=== PATIENT | female | born 1985 | race Caucasian/White ===

== ENCOUNTER 2019-08-01 12:58 | Emergency (ER) | payer BC, MEDICAID ==
[2019-08-01] MEDS ORDERED: Ondansetron PF 4 MG/2 ML Vial ONE (13:46)
[2019-08-01 13:55] LABS: #Basophils 0.1 thou/uL (0.0-0.2); #Lymphocytes 2.1 thou/uL (1.20-3.40); #Monocytes 0.3 thou/uL (0.11-0.59); #Neutrophils 9.5 thou/uL (1.40-6.50); %Basophils 0.9 % (0.0-1.0); %Eosinophils 0.3 % (0.0-10.0); %Lymphocytes 17.7 % (21.0-51.0); %Monocytes 2.5 % (0.0-10.0); %Neutrophils 78.7 % (42.0-75.0); Hemoglobin 13.4 g/dL (12.0-16.0); Mean Corpuscular HGB CONC 33.3 g/dL (32.0-36.0); Mean Corpuscular Hemoglobin 28.4 pg (27.0-31.0); Mean Corpuscular Volume 85.4 fL (78.0-98.0); Mean Platelet Volume 7.3 fL (7.4-10.4); Platelet Count 269 thou/uL (130-400); RBC Distribution Width 11.1 % (11.5-14.5); Red Blood Cell (RBC) Count 4.71 mill/uL (4.20-5.40)
[2019-08-01 13:59] LABS: BHCG - Serum Negative (NEGATIVE); Pregs Control Background? CLEAR/WHITE (CLR/WHITE); Pregs Control Bar Appear? YES (CONTROL BAR)
[2019-08-01 14:06] LABS: ALT (SGPT) 22 U/L (8-55); AST (SGOT) 21 U/L (5-34); Albumin 4.4 g/dL (3.5-5.0); Alkaline Phosphatase 109 U/L (40-110); Anion Gap 20 mmol/L (10-20); BUN (Urea Nitrogen) 11 mg/dL (7.0-18.7); Bilirubin, Total 0.4 mg/dL (0.2-1.2); Calc. Creatinine Clearance 0 mL/min (70-130); Calcium 9.5 mg/dL (7.8-10.44); Carbon Dioxide 23 mmol/L (22-29); Chloride 102 mmol/L (98-107); Estimated GFR-MDRD Greater than 90; Globulin 3.8 g/dL (2.4-3.5); Glucose 125 mg/dL (70-105); Lipase 33 U/L (8-78); Potassium 3.6 mmol/L (3.5-5.1); Protein, Total 8.2 g/dL (6.0-8.3); Sodium 141 mmol/L (136-145)
[2019-08-01 14:20] LABS: Bacteria/HPF None Seen HPF (None Seen); Bilirubin Negative (Negative); Blood, Urine Trace (Negative); Clarity Slightly Cloudy (Clear); Glucose, Urine (Dipstick) Negative (Negative); Leukocyte Negative (Negative); Nitrite Negative (Negative); Protein, Urine (Dipstick) Negative (Neg-Trace); RBC/HPF 0-3 HPF (0-3); Squamous Epithelial 0-3 HPF (0-3); Urobilinogen 0.2 mg/dL (Less than 2); WBC/HPF 0-3 HPF (0-3)
== END 2019-08-01 16:02 | disposition home or self-care (01) ==
LOC: SCSER 12:58
DX: E86.0 Dehydration (principal); R11.2 Nausea with vomiting, unspecified; R19.7 Diarrhea, unspecified
CPT/HCPCS: 80053; 81003; 81015; 83605; 83690; 84703; 85025; 96361; 96374; J2405

== ENCOUNTER 2019-12-27 13:32 | Day surgery (SDC) | payer OTHER ==
[2019-12-27] MEDS ORDERED: hydrALAZINE 20 MG/ML VIAL SLOW IVP PRN (13:41)
[2019-12-27] MEDS ORDERED: Famotidine/PF 20 mg/2ml Vial SLOW IVP SCH (13:45)
[2019-12-27] MEDS ORDERED: Lactated Ringer's 1,000 ML IV SCH ×2 (13:45→20:30)
--- NOTE | 2019-12-27 13:57 | PDOC.EVN ---
Event Note - Event Note Event Note: Patient seen at bedside. Eval done. Plesae see full H&P dictated by me
[2019-12-27 13:59] VITALS: BMI 34.7
[2019-12-27] MEDS ORDERED: Multivitamins, Adult 10 ML, Folic Acid 1 MG, Thiamine HCl 100 MG in Dextrose 5 %-0.45 %... IV SCH (14:00)
--- NOTE | 2019-12-27 14:27 | HP ---
TIME: The time of initial evaluation was approximately 1340 hours. It is now about 1354 hours. LOCATION: Antepartum Unit in Labor and Delivery. REASON FOR EVALUATION: Patient is 17 weeks , status post IVF, with persistent nausea and vomiting, which has been a problem for most of the . This is a patient of Dr. Amin. This patient is the daughter of Dr. Armin Vo with Neonatology. HISTORY OF PRESENT ILLNESS: This is a 34-year-old G2, P1 with a previous in 2017, who is status post IVF for this , placing her at around 17 to 18 weeks for this . Her EDC is May 31, 2020. She sees Dr. Amin for care. The patient and the patient's mother, who is also in the room, state that she has had continual nausea and vomiting for most of this . Currently, she is on Zofran and scopolamine as well as vitamin supplementation. She denies any vaginal bleeding, leakage of fluid, or chest pain. She denies any right upper quadrant colicky pain. She denies any diarrhea or constipation. REVIEW OF SYSTEMS: Complete review of systems was checked and is otherwise negative unless specified in the HPI. PAST MEDICAL HISTORY: Significant for, 1. Psoriasis. 2. The patient has Axenfeld syndrome. 3. The patient also has a slight component of mental deficiency, which may be related to the Axenfeld per the patient's mother. ALLERGIES: TO PHENERGAN, WHICH IS AVOIDED IN HER BECAUSE THE MOTHER HAS A SEVERE LIMB MOVEMENT REACTION WITH THE MEDICATION AND SO SHE WAS TOLD TO CAUTION USE FOR PHENERGAN IN HER CHILDREN (THE PATIENT MAY HAVE THIS GENETIC TENDENCY). PHYSICAL EXAMINATION: VITAL SIGNS: Pending as the patient just arrived to Labor and Delivery, but I have seen the patient, as we are awaiting for her to be officially enrolled into Labor and Delivery/checked in. Vitals are pending. GENERAL: She is in no acute distress, and there is no evidence of vaginal bleeding grossly or leakage of fluid. Interventions ordered. I have ordered a Doppler heart check. I have ordered a right upper quadrant ultrasound. I have ordered a CMP. I have ordered an H pylori, which is a send-out lab. I have ordered IV Pepcid and a banana bag for multivitamin hydration. I have also ordered LR, but we can do that after the banana bag. ASSESSMENT: This is a 34-year-old G2, P1, previous section x1 in 2017, at 17 weeks, status post in vitro fertilization. The patient has had persistent nausea and vomiting for this gestation and based on her history, has not been evaluated for Helicobacter pylori as of yet. PLAN: 1. Interventions as above. 2. We will give her, her IV banana bag and IV fluids for hydration. 3. IV Pepcid as an antacid to reduce acid burden in the stomach. 4. CMP. 5. Right upper quadrant ultrasound. 6. Doppler FHTs. 7. H pylori lab is a send out, but we can check that in the office next week. 8. Plan discussed with the patient at bedside. Job ID: [id number]
--- NOTE | 2019-12-27 14:28 | ULT ---
Sonogram right upper quadrant HISTORY: Right upper quadrant pain. FINDINGS: Gallbladder well distended without focal stone or abnormality. Common duct is 0.4 cm. Liver unremarkable without focal mass or intrahepatic biliary dilatation. No free fluid. IMPRESSION : Normal right upper quadrant sonogram.
[2019-12-27 14:58] LABS: ALT (SGPT) 56 U/L (8-55); AST (SGOT) 47 U/L (5-34); Albumin 3.6 g/dL (3.5-5.0); Alkaline Phosphatase 81 U/L (40-110); Anion Gap 16 mmol/L (10-20); BUN (Urea Nitrogen) 6 mg/dL (7.0-18.7); Bilirubin, Total 0.5 mg/dL (0.2-1.2); Calc. Creatinine Clearance 164 mL/min (70-130); Calcium 9.1 mg/dL (7.8-10.44); Carbon Dioxide 20 mmol/L (22-29); Chloride 104 mmol/L (98-107); Estimated GFR-MDRD Greater than 90; Globulin 3.5 g/dL (2.4-3.5); Glucose 81 mg/dL (70-105); Protein, Total 7.1 g/dL (6.0-8.3); Sodium 136 mmol/L (136-145)
--- NOTE | 2019-12-27 15:20 | PDOC.EVN ---
Event Note - Event Note Event Note: RUQ sono negative AST and ALT slightly elevated but not 2x normal...may be reactive.
--- NOTE | 2019-12-27 17:12 | PDOC.EVN ---
Event Note - Event Note Event Note: Patient still states feels a bit nauseous, but no emesis here. We are limited in meds by inability to RX phenergan derivatives. Rec home with possible Pepsid OTC anf follow up H Pylori test next week.
--- NOTE | 2019-12-27 18:03 | PDOC.EVN ---
Event Note - Event Note Event Note: At bedside, reviewed med options and as Beverley has not ever tried phenergan, we will try as nausea persists with limited other options. 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 We will try 12.5mg oral.
[2019-12-27] MEDS: Promethazine 25 MG TAB PO SCH ×2 (19:13→20:50)
[2019-12-27] MEDS ORDERED: Promethazine 25 MG TAB PO SCH (20:30)
[2019-12-30 18:36] LABS: H. pylori IgA ABS Less than 9.0 units (0.0-8.9); H. pylori IgG ABS 0.17 (0.00-0.79); H. pylori IgM ABS Less than 9.0 units (0.0-8.9)
== END 2019-12-27 21:54 | disposition home or self-care (01) ==
LOC: SDC 13:32
PROVIDERS: ATTEND Obstetrics & Gynecology
DX: O21.9 Vomiting of pregnancy, unspecified (principal); O09.522 Supervision of elderly multigravida, second trimester; O99.89 Other specified diseases and conditions complicating pregnancy, childbirth and the puerperium; Q15.0 Congenital glaucoma; O99.342 Other mental disorders complicating pregnancy, second trimester; F79 Unspecified intellectual disabilities; O99.712 Diseases of the skin and subcutaneous tissue complicating pregnancy, second trimester; L40.9 Psoriasis, unspecified; O34.219 Maternal care for unspecified type scar from previous cesarean delivery; Z3A.17 17 weeks gestation of pregnancy; Z79.82 Long term (current) use of aspirin; Z79.899 Other long term (current) drug therapy; Z88.8 Allergy status to other drugs, medicaments and biological substances; Z91.040 Latex allergy status
CPT/HCPCS: 36415; 76705; 80053; 96361; 96365; 96366; 96375; 99283; J3411; J7042; Q0169; S0028

== ENCOUNTER 2020-01-11 20:23 | Day surgery (SDC) | payer OTHER ==
[2020-01-11] MEDS ORDERED: hydrALAZINE 20 MG/ML VIAL SLOW IVP PRN (21:10)
--- NOTE | 2020-01-11 21:11 | PDOC.EVN ---
Event Note - Event Note Event Note: Patient well known to me. Seen at [facility]. Here for N/V. Sent by Haleigh Zhong. H Pylori was neg propr and RUQ sono was neg / Plan to hydrate and start po daily H2 penny (pepsid) Check TVU for CX length just to confirm normal
--- NOTE | 2020-01-11 21:15 | PDOC.FPROB ---
FMR OB H&P: HPI - History of Present Illness Chief Complaint: Nausea, discharge Indentification: 34yo at 19.6wks by IVF criteria History of Present Illness: 34yo at 19.6wks by IVF criteria presents with nausea and vomiting that has been chronic throughout her but worse over the past few days. She is currently taking PNV, ASA and for her nausea: Phenergan 25mg BID, Zofran 4mg PRN q6h, and Bonjesta qHS. Last took Phenergan at 3pm, Zofran early this morning. Reports last time she vomited was 2 days ago but has had decreased PO intake and not tolerating liquids well due to nausea. Also reports vaginal mucus but denies vaginal bleeding, pruritis, recent change in discharge, dysuria , contractions, leakage of thin fluid. H pylori was recently checked which was negative. Primary Care Physician: Kamryn Zhong FMR OB H&P: Current - Care : 2 Para: 0101 Gestational age: 19.6wks Dating Criteria: IVF criteria FMR OB H&P: History - Past Medical History PMH: Axenfeld syndrome - OB History OB History: Prior with HELLP, C/S at 33wks Chronic n/v this - Surgical History Sx History: C/S Reports surgery on occipital area of skull- removal of piece of bone. Surgery for arm fracture. - Social History Social History: Denies alcohol, drug, tobacco use. - Family History Family History: Noncontributory FMR OB H&P: Medications - Current Home Medications: Medication Instructions Recorded Confirmed Type Cholecalciferol (Vitamin D3) 1,000 unit PO DAILY 04/23/17 01/11/20 History [Vitamin D] Vitamin 1 tablet PO DAILY 04/23/17 01/11/20 History Aspirin [Aspir-Low] 81 mg PO DAILY 12/27/19 01/11/20 History Doxylamine Succinate/Vit B6 1 each PO DAILY 12/27/19 01/11/20 History [Bonjesta ER 20-20 mg Tablet] Ondansetron [Zofran ODT] 4 mg PO Q4HR PRN 12/27/19 01/11/20 History Prasterone (DHEA) [DHEA] 50 mg PO DAILY 12/27/19 01/11/20 History Ubidecarenone [Co Q-10] 400 mg PO DAILY 12/27/19 01/11/20 History Allergies/Adverse Reactions: Allergies Allergy/AdvReac Type Severity Reaction Status Date / Time latex Allergy Intermediate Rash Verified 04/23/17 06:04 FMR OB H&P: ROS - Review of Systems General: reports: weight/appetite/sleep changes (denies wt loss. Decreased appetite due to nausea). denies: fever/chills Eyes: denies: vision changes, double vision ENT: denies: nasal congestion, rhinorrhea, sore throat Cardiovascular: denies: chest pain, palpitation Respiratory: denies: cough, congestion, shortness of breath Gastrointestinal: reports: nausea, vomiting, other (abdominal cramping). denies : abdominal pain Genitourinary (Female): reports: vaginal discharge. denies: dysuria, hematuria , vaginal bleeding, contractions Musculoskeletal: denies: pain Neurologic: denies: weakness, headache Integumentary: denies: rash, lesions FMR OB H&P: Physical Exam - Physical Exam General: NAD, awake, alert and oriented HEENT: normocephalic and atraumatic, MMM, conjunctiva clear, oropharynx clear Neck: supple, trachea midline Heart: RRR, no edema General: CTAB, no respiratory distress Abdomen: soft, gravid Musculoskeletal: pulses present, no misalignment/asymmetry, no atrophy Skin: no rash, good tugor Lymphatic: no unusual bruising or bleeding Psychiatric: good judgement and insight, normal mood and affect FMR OB H&P: A/P Disposition: 34yo at 19.6wks by IVF criteria presents with n/v - Will check cervical length with TVUS and CMP. For mild dehydration will give 1L LR. Can increase dose of phenergan to 50mg BID, discussed the risk of sedation with increased dose. Continue Bojesta qHS and Zofran PRN. Will give Pepcid 20mg IV. Will send in rx for her to begin taking this at home. If cervical length and BMP is normal she can be discharged with close outpt follow up. Discussion: Date/Time: 01/11/202112 This H&P was discussed with Dr. Howard who agrees with the above documentation and plan.
[2020-01-11] MEDS ORDERED: Famotidine/PF 20 mg/2ml Vial SLOW IVP SCH (21:30)
[2020-01-11] MEDS ORDERED: Lactated Ringer's 1,000 ML IV SCH (21:30)
[2020-01-11 22:04] LABS: ALT (SGPT) 23 U/L (8-55); AST (SGOT) 28 U/L (5-34); Albumin 3.5 g/dL (3.5-5.0); Alkaline Phosphatase 92 U/L (40-110); Anion Gap 16 mmol/L (10-20); BUN (Urea Nitrogen) 9 mg/dL (7.0-18.7); Bilirubin, Total 0.2 mg/dL (0.2-1.2); Calc. Creatinine Clearance 0 mL/min (70-130); Calcium 9.3 mg/dL (7.8-10.44); Carbon Dioxide 21 mmol/L (22-29); Chloride 103 mmol/L (98-107); Estimated GFR-MDRD Greater than 90; Glucose 90 mg/dL (70-105); Potassium 4.3 mmol/L (3.5-5.1); Protein, Total 7.5 g/dL (6.0-8.3); Sodium 136 mmol/L (136-145)
--- NOTE | 2020-01-11 22:32 | PDOC.EVN ---
Event Note - Event Note Event Note: Cervical length and CMP normal. Instructed to follow up with OB provider within 1 week.
--- NOTE | 2020-01-11 22:34 | PDOC.EVN ---
Event Note - Event Note Event Note: CMP and cervical length normal. OK for outpat long-term with pepcid
--- NOTE | 2020-01-11 22:51 | ULT ---
ULTRASOUND TRANSVAGINAL 01/11/20 HISTORY: Evaluate cervical length. COMPARISON: None. FINDINGS: Real time muniz scale color evaluation of the cervix was performed. Cervix is closed measuring approximately 3 cm in length. IMPRESSION: Closed cervix measuring approximately 3 cm. POS: HOME
== END 2020-01-11 22:58 | disposition home or self-care (01) ==
LOC: L&D/OP 20:23
PROVIDERS: ATTEND Obstetrics & Gynecology
DX: O21.9 Vomiting of pregnancy, unspecified (principal); O99.282 Endocrine, nutritional and metabolic diseases complicating pregnancy, second trimester; E86.0 Dehydration; O09.522 Supervision of elderly multigravida, second trimester; O99.89 Other specified diseases and conditions complicating pregnancy, childbirth and the puerperium; Q15.0 Congenital glaucoma; Z3A.19 19 weeks gestation of pregnancy; Z79.82 Long term (current) use of aspirin; Z79.899 Other long term (current) drug therapy; Z91.040 Latex allergy status; Z98.890 Other specified postprocedural states
CPT/HCPCS: 36415; 80053; S0028

== ENCOUNTER 2020-01-31 19:55 | Observation (INO) | payer OTHER ==
[2020-01-31 20:35] VITALS: BMI 37.2
[2020-01-31] MEDS ORDERED: hydrALAZINE 20 MG/ML VIAL SLOW IVP PRN (21:07)
[2020-01-31] MEDS ORDERED: Ondansetron PF 4 MG/2 ML Vial IVP PRN (21:07)
[2020-01-31] MEDS ORDERED: Dextrose 5%-Lactated Ringers 1,000 ML IV SCH (21:15)
[2020-01-31] MEDS ORDERED: Lactated Ringer's 1,000 ML IV SCH (21:15)
[2020-01-31] MEDS: Metoclopramide HCl 10 MG/2 ML VIAL IVP SCH (22:30)
[2020-01-31 22:40] LABS: Anion Gap 17 mmol/L (10-20); BUN (Urea Nitrogen) 5 mg/dL (7.0-18.7); Calc. Creatinine Clearance 196 mL/min (70-130); Calcium 8.7 mg/dL (7.8-10.44); Carbon Dioxide 20 mmol/L (22-29); Chloride 105 mmol/L (98-107); Estimated GFR-MDRD Greater than 90; Glucose 68 mg/dL (70-105); Magnesium 1.7 mg/dL (1.6-2.6); Potassium 4.2 mmol/L (3.5-5.1); Sodium 138 mmol/L (136-145)
--- NOTE | 2020-02-01 01:27 | HP ---
PRIMARY OB: Joceline Amin MD CHIEF COMPLAINT: Nausea and vomiting with failed outpatient management. HISTORY OF PRESENT ILLNESS: The patient is a 34-year-old G2, P1 female with an intrauterine at 22 weeks and 5 days, presenting to Labor and Delivery with increasing nausea and vomiting since this morning at about 4 o'clock. The patient has had recent trouble with nausea and vomiting, and has been on scheduled Zofran and Phenergan and Bonjesta. She reports that today since 4 o'clock in the morning, she has had repeated vomiting episodes, large in volume and is unable to keep down on food or liquid well. She denies fever, cough, headache, chest pain, or shortness of breath. The patient does report diarrhea. Denies constipation. Denies any new rashes, hip problems, knee problems, or muscle weakness. Denies vaginal bleeding or leakage of fluid, urinary urgency or frequency. PAST MEDICAL HISTORY: Axenfeld syndrome. PAST SURGICAL HISTORY: Prior x1, surgery on her skull, and surgery for an arm fracture. OBSTETRIC HISTORY: HELLP syndrome at 33 weeks. SOCIAL HISTORY: Denies drug, alcohol, or tobacco use. MEDICATIONS: 1. Vitamin D. 2. Low-dose aspirin 81 mg daily. 3. vitamins. 4. Bonjesta. 5. Zofran 8 mg. 6. DHEA. 7. CoQ10. 8. Phenergan 25 mg. ALLERGIES: LATEX. OB LABS: Unavailable at the time of dictation. REVIEW OF SYSTEMS: Per HPI. PHYSICAL EXAMINATION: VITAL SIGNS: Blood pressure 125/75, heart rate of 83, respiratory rate 15, temperature 98.1. GENERAL: The patient appears to be in no acute distress. She does appear somewhat depleted visually. She is alert, oriented, cooperative, and pleasant to interact with. HEAD: Normocephalic, atraumatic. LUNGS: Clear to auscultation bilaterally. HEART: Has a regular rate and rhythm. ABDOMEN: Gravid, soft, nontender. EXTREMITIES: Nontender, nonedematous. : Has been deferred. Fetus has a baseline in the 150s. LABORATORY DATA: Sodium is 138, potassium 4.2, BUN of 5, creatinine 0.51, glucose is 68, calcium of 8.7, and magnesium of 1.7. ASSESSMENT AND PLAN: The patient is a 34-year-old female with an intrauterine at 22 weeks and 5 days, as a result of IVF here for persistent nausea and vomiting. The patient has no evidence of electrolyte abnormalities. She is going to be getting IV for IV hydration and then placed on Zofran 4 mg IV q.4 hours, vitamin B6 of 25 mg three times a day, doxylamine 12.5 mg in the morning and at night, and Reglan 10 mg 30 minutes prior to her meals. We will attempt to transfer things over to p.o. medication tomorrow should the patient tolerate the diet. Once we have been able to prove effectiveness of an oral regimen, the patient will be discharged home. Job ID: [id number]
[2020-02-01 02:15] VITALS: TEMP 98.4
[2020-02-01] MEDS: Metoclopramide HCl 10 MG/2 ML VIAL IVP SCH (06:30)
--- NOTE | 2020-02-01 08:49 | PRG ---
DATE OF SERVICE: 02/01/2020 SUBJECTIVE: The patient is a 34-year-old female with an intrauterine at 22 weeks, who was admitted last night for observation secondary to persistent nausea and vomiting and failed outpatient management. The patient was given IV fluids for hydration, scheduled Reglan and Zofran, B6, and doxylamine. Since admission, the patient has not vomited. She reports that she slept well and is doing well this morning. OBJECTIVE: VITAL SIGNS: Blood pressure 100/54, heart rate of 83, respiratory rate 18, saturating 98% on room air, temperature 98.3. GENERAL: She appears to be in no acute distress. She is alert, oriented, cooperative, pleasant to interact with. HEENT: Head is normocephalic, atraumatic. heart tracing shows fetus with a baseline in the 150s. No contractions. ASSESSMENT AND PLAN: The patient is a 34-year-old female admitted for nausea and vomiting, now on IV fluids. Scheduled Reglan and Zofran, B6, and doxylamine. She has been doing well since admission. Plan will be to feed her breakfast this morning if the patient desires and if tolerated, will oil changer to p.o. Reglan, Zofran, B6, and doxylamine and give her a trial of lunch and if she tolerates all that can go home. Dr. Fabian is the oncoming physician, who will be assuming care. Job ID: [id number]
[2020-02-01] MEDS ORDERED: Doxylamine 25 MG TAB PO SCH (09:00)
[2020-02-01] MEDS ORDERED: Famotidine 20 MG TAB PO SCH (09:00)
[2020-02-01] MEDS ORDERED: pyridOXINE 50 MG (B6) TAB PO SCH (09:00)
--- NOTE | 2020-02-01 11:48 | PDOC.EVN ---
Event Note - Event Note Event Note: Feels well, no N/V since admission. Tolerating regular breakfast; eggs, guadarrama. VSS AF FHTs stable. Plan: DC home with prewcautions. Has Phenergan and Zofran at home, script for Reglan 10 mg po BID #[address] Amin notified.
== END 2020-02-01 11:55 | disposition home health service (06) ==
LOC: L&D/OP 19:55 → L&D 21:12
PROVIDERS: ADMIT Obstetrics & Gynecology; ATTEND Obstetrics & Gynecology
DX: O21.2 Late vomiting of pregnancy (principal); O34.219 Maternal care for unspecified type scar from previous cesarean delivery; O09.522 Supervision of elderly multigravida, second trimester; Z3A.22 22 weeks gestation of pregnancy; Z79.82 Long term (current) use of aspirin; Z79.899 Other long term (current) drug therapy; Z91.040 Latex allergy status
CPT/HCPCS: 36415; 80048; 83735; 96361; 96374; 96376; 99285; G0378; J2765

== ENCOUNTER 2020-02-15 13:02 | Day surgery (SDC) | payer OTHER ==
[2020-02-15] MEDS ORDERED: Ondansetron ODT 8 MG TAB SL SCH (13:45)
[2020-02-15 14:36] LABS: Bacteria/HPF None Seen HPF (None Seen); Bilirubin Negative (Negative); Blood, Urine Negative (Negative); Clarity Clear (Clear); Glucose, Urine (Dipstick) Normal (Negative); Leukocyte Negative Leu/uL (Negative); Nitrite Negative (Negative); Protein, Urine (Dipstick) 10 mg/dL (Neg-Trace); RBC/HPF 0-3 HPF (0-3); Squamous Epithelial 0-3 HPF (0-3); Urobilinogen Normal mg/dL (Less than 2); WBC/HPF 0-3 HPF (0-3)
[2020-02-15] MEDS ORDERED: Promethazine HCl 12.5 MG in Sodium Chloride 0.9% 50 ML IVPB PRN (14:42)
[2020-02-15] MEDS ORDERED: Lactated Ringer's 500 ML IV SCH (14:45)
[2020-02-15] MEDS ORDERED: hydrALAZINE 20 MG/ML VIAL SLOW IVP PRN (17:46)
--- NOTE | 2020-02-16 05:37 | PRG ---
DATE OF SERVICE: 02/15/2020 PRIMARY LOOP SEWER: Joceline Amin MD CHIEF COMPLAINT: Intermittent nausea and vomiting since 5 o'clock this morning. HISTORY OF PRESENT ILLNESS: The patient is a 34-year-old G2, P1 female with an intrauterine at 24 weeks and 6 days, presenting to Labor and Delivery with unremitting nausea and vomiting since 5 o'clock this morning. She reports that she has been unable to keep any of her antiemetics down, tolerate any food or liquids. She has had a combination of gagging, vomiting liquid, and vomiting food. This has been an ongoing problem for her throughout this and is in the process of getting a Zofran pump. The patient had been taking Reglan since her last admission, but had stopped it herself as the Reglan had been causing her to feel uterine contractions. The patient denies fever, cough, headache, chest pain, shortness of breath, diarrhea, constipation, any new rashes, hip problems, knee problems, muscle weakness, vaginal bleeding, leakage of fluid, urinary urgency, or frequency. PAST MEDICAL HISTORY: Axenfeld syndrome. PAST SURGICAL HISTORY: 1. One prior . 2. Surgery on her skull. 3. Surgery for an arm fracture. OBSTETRICAL HISTORY: HELLP syndrome at 33 weeks. SOCIAL HISTORY: Denies drug, alcohol, or tobacco use. MEDICATIONS: 1. Vitamin D. 2. 81 mg of aspirin. 3. vitamins. 4. Bonjesta. 5. Zofran. 6. Phenergan. 7. DHEA. 8. CoQ10. ALLERGIES: LATEX. OBSTETRIC LABORATORY DATA: Unavailable at the time of dictation. REVIEW OF SYSTEMS: Per HPI. PHYSICAL EXAMINATION: VITAL SIGNS: Blood pressure 111/55, heart rate of 96, respiratory rate of 18, and temperature 98.3. GENERAL: She appears to be in no acute distress. She is alert and oriented, cooperative, and pleasant to interact with. HEAD: Normocephalic and atraumatic. LUNGS: Clear to auscultation bilaterally. HEART: Regular rate and rhythm. ABDOMEN: Gravid, soft, and nontender. EXTREMITIES: Nontender and nonedematous. heart tracing shows a fetus at the baseline in the 150s with moderate long-term variability. LABORATORY DATA: Urine with specific gravity of 1.020, 40 ketones, negative nitrites, negative leukocyte esterase, negative white blood cells, and negative bacteria. ASSESSMENT AND PLAN: The patient is a 34-year-old female with uncontrollable nausea and vomiting today. Urine is not overly concentrated. We have placed 8 mg of Zofran under her tongue and have given her 12.5 mg of Phenergan IV and 500 mL of IV fluids. The patient has since been able to tolerate a diet and doing much better. We will be sending her home with Phenergan suppositories to be used when she gets into these episodes, making oral treatment nearly very difficult to take. The patient otherwise is being discharged in stable condition with instructions to follow up with her primary OB as scheduled. Job ID: [id number]
== END 2020-02-15 18:00 | disposition home or self-care (01) ==
LOC: L&D/OP 13:02
PROVIDERS: ATTEND Student in an Organized Health Care Education/Training Program
DX: O21.2 Late vomiting of pregnancy (principal); O34.219 Maternal care for unspecified type scar from previous cesarean delivery; Z3A.24 24 weeks gestation of pregnancy; Z88.8 Allergy status to other drugs, medicaments and biological substances; Z91.040 Latex allergy status
CPT/HCPCS: 81001; J2550; Q0162

== ENCOUNTER 2020-02-26 19:59 | Day surgery (SDC) | payer OTHER ==
[2020-02-26 20:27] VITALS: BMI 36.6
[2020-02-26] MEDS ORDERED: hydrALAZINE 20 MG/ML VIAL SLOW IVP PRN (20:39)
--- NOTE | 2020-02-26 20:47 | PDOC.LDHP ---
Labor and Delivery H&P Chief complaint: other (Fluids) HPI: 34 y/o at 26w3d, patient of Dr. Amin, presents for IV fluids before leaving [facility]. Patient is on a zofran pump for chronic nausea and is not nauseated at this time. Denies VB, LOF, ctx, or other concerns. +FM ROS neg for HEENT, cv, pulm, gi, gu, neuro, psych, skin, musculoskeletal or constitutional symptoms other than mentioned above. OB History Details: 1 prior LTCS for HELLP syndrome Current complications: none Past Medical History: Axenfeld syndrome Current medications: pre- vitamins, other (Vitamin D, 81mg ASA, Bonjesta, Zofran, Phenergan, DHEA, CoQ10) Previous surgical history: low tranverse CS, other (skull surgery, arm surgery) Allergies/Adverse Reactions: Allergies Allergy/AdvReac Type Severity Reaction Status Date / Time latex Allergy Intermediate Rash Verified 01/31/20 20:36 metoclopramide [From Reglan] Allergy Unknown Verified 02/15/20 14:00 Social history: none - Physical Exam Vital signs reviewed and normal: yes General: NAD, resting Lungs: nonlabored breathing Abdomen: gravid Extremeties: no edema FHT: category 1 (130s, mod variability, + accels, occasional variable decels) [place] contractions every: none - Assessment 34 y/o at 26w3d with dehydration from chronic N/V. status reassuring with reactive NST. - Plan -: D/c home with precautions. Advised to keep all appointments.
[2020-02-26] MEDS: Lactated Ringer's 1,000 ML IV SCH ×2 (21:00→22:10)
== END 2020-02-26 23:40 | disposition home or self-care (01) ==
LOC: L&D/OP 19:59
PROVIDERS: ATTEND Student in an Organized Health Care Education/Training Program
DX: O99.282 Endocrine, nutritional and metabolic diseases complicating pregnancy, second trimester (principal); E86.0 Dehydration; O21.2 Late vomiting of pregnancy; O34.211 Maternal care for low transverse scar from previous cesarean delivery; Z3A.26 26 weeks gestation of pregnancy; Z79.82 Long term (current) use of aspirin; Z79.899 Other long term (current) drug therapy; Z88.8 Allergy status to other drugs, medicaments and biological substances; Z91.040 Latex allergy status
CPT/HCPCS: 96360; 96361; 99281

== ENCOUNTER 2020-03-13 14:18 | Day surgery (SDC) | payer OTHER ==
[2020-03-13] MEDS ORDERED: hydrALAZINE 20 MG/ML VIAL SLOW IVP PRN (14:38)
[2020-03-13] MEDS ORDERED: Lactated Ringer's 1,000 ML IV SCH (14:45)
[2020-03-13 14:54] VITALS: BMI 36.3
--- NOTE | 2020-03-13 15:23 | HP ---
TIME: 1440 hours. REASON FOR EVALUATION: Nausea and vomiting at 28 weeks and 5 days. This is a patient of Dr. Amin, who received a phone call from the patient's mother earlier today about her nausea and vomiting, and Dr. Amin instructed her to come for IV fluids. HISTORY OF PRESENT ILLNESS: This is a 34-year-old G2, P0-1-0-1, who has presented with nausea and vomiting in the past for what seems to be a chronic condition. She has used Phenergan and Zofran in the past for this. She has been on several cocktail medications for nausea this . OBSTETRIC HISTORY: She is a 2, para 0-1-0-1. SURGICAL HISTORY: She has had a prior , and she also reports arm fracture and skull surgical repair in the past as well. SOCIAL HISTORY: Negative x3. FAMILY HISTORY: Noncontributory. ALLERGIES: TO LASIX AND METOCLOPRAMIDE. PHYSICAL EXAMINATION: GENERAL: She is in no acute distress. VITAL SIGNS: Stable, afebrile. PELVIC: There is no evidence of vaginal bleed. No gross leakage of fluid. ASSESSMENT: This is a 34-year-old, G2, P0-1-0-1, who is now at 28 weeks and 5 days with persistent nausea and vomiting. PLAN: 1. We will check a complete metabolic profile. 2. I have ordered 2 L of LR. 3. Dr. Amin is aware of the patient's arrival and has requested that I watch her here in Labor and Delivery and give her IV fluids. Job ID: [id number]
[2020-03-13 15:37] LABS: ALT (SGPT) 186 U/L (8-55); AST (SGOT) 182 U/L (5-34); Alkaline Phosphatase 115 U/L (40-110); Anion Gap 11 mmol/L (10-20); BUN (Urea Nitrogen) 6 mg/dL (7.0-18.7); Bilirubin, Total 0.2 mg/dL (0.2-1.2); Calc. Creatinine Clearance 175 mL/min (70-130); Calcium 8.4 mg/dL (7.8-10.44); Carbon Dioxide 24 mmol/L (22-29); Chloride 105 mmol/L (98-107); Estimated GFR-MDRD Greater than 90; Globulin 3.3 g/dL (2.4-3.5); Glucose 94 mg/dL (70-105); Potassium 3.7 mmol/L (3.5-5.1); Protein, Total 6.3 g/dL (6.0-8.3); Sodium 136 mmol/L (136-145)
--- NOTE | 2020-03-13 15:50 | PDOC.BPN ---
- Brief Progress Note At bedside now. States threw up pepcid at home and zofran at home. Will order IV zofran and pepcid now
--- NOTE | 2020-03-13 15:53 | PDOC.BPN ---
- Brief Progress Note AST and ALT 180s Creatinine is ok BPs all been ok Elevated LFTS may be reactive from the persistent N/V. We will check hepatitis panel now; check CBC as well.
[2020-03-13 15:59] LABS: Mean Corpuscular HGB CONC 33.8 g/dL (32.0-36.0); Mean Corpuscular Hemoglobin 29.2 pg (27.0-31.0); Mean Corpuscular Volume 86.5 fL (78.0-98.0); Mean Platelet Volume 8.5 fL (7.4-10.4); Platelet Count 203 thou/uL (130-400); RBC Distribution Width 11.8 % (11.5-14.5); Red Blood Cell (RBC) Count 3.41 mill/uL (4.20-5.40); White Blood Cell (WBC) Count 13.1 thou/uL (4.8-10.8)
[2020-03-13] MEDS ORDERED: Famotidine/PF 20 mg/2ml Vial SLOW IVP SCH (16:00)
[2020-03-13] MEDS ORDERED: Ondansetron HCl/PF 4 MG in Sodium Chloride 0.9% 50 ML IVPB SCH (16:00)
[2020-03-13 16:41] LABS: HBCM Index 0.05 S/CO (0-0.79); HBSAg Index 0.18 S/CO (0-0.99); Hep A IgM AB Non-Reactive (NonReactive); Hep B Surf Ag Non-Reactive S/CO (NonReactive); Hep C IgG Ab Non-Reactive (NonReactive); Hep C Index 0.06 S/CO (0-0.79); Hepatitis B Core IgM Abs Non-Reactive (NonReactive)
--- NOTE | 2020-03-13 16:59 | PDOC.BPN ---
- Brief Progress Note CBC is wnl Hep panel is negative
== END 2020-03-13 17:36 | disposition home health service (06) ==
LOC: L&D/OP 14:18
PROVIDERS: ATTEND Student in an Organized Health Care Education/Training Program
DX: O21.2 Late vomiting of pregnancy (principal); O34.219 Maternal care for unspecified type scar from previous cesarean delivery; O09.523 Supervision of elderly multigravida, third trimester; Z3A.28 28 weeks gestation of pregnancy; Z88.8 Allergy status to other drugs, medicaments and biological substances; Z91.040 Latex allergy status
CPT/HCPCS: 36415; 80053; 80074; 85027; J2405; S0028

== ENCOUNTER 2020-03-16 11:06 | Inpatient (IN) | payer OTHER ==
[2020-03-16 11:43] VITALS: BMI 36.3
[2020-03-16] MEDS ORDERED: hydrALAZINE 20 MG/ML VIAL SLOW IVP PRN ×2 (12:18→15:33)
[2020-03-16] MEDS ORDERED: Lactated Ringer's 1,000 ML IV SCH (12:30)
[2020-03-16 12:38] LABS: Bacteria/HPF None Seen HPF (None Seen); Bilirubin Negative (Negative); Blood, Urine Negative (Negative); Clarity Clear (Clear); Glucose, Urine (Dipstick) Normal (Negative); Leukocyte 250 Leu/uL (Negative); Nitrite Negative (Negative); Protein, Urine (Dipstick) 20 mg/dL (Neg-Trace); RBC/HPF 0-3 HPF (0-3); Squamous Epithelial 0-3 HPF (0-3); Urobilinogen Normal mg/dL (Less than 2)
[2020-03-16] MEDS ORDERED: Ondansetron PF 4 MG/2 ML Vial IVP SCH (13:00)
[2020-03-16 14:08] LABS: FFN Internal QC Analyzer PASS (PASS); FFN Internal QC Cassette PASS (PASS); Fetal Fibronectin POSITIVE (Negative)
[2020-03-16] MEDS ORDERED: Heparin 1,000 UNITS/ML VIAL ONE (14:41)
--- NOTE | 2020-03-16 14:58 | ULT ---
LIMITED OB ULTRASOUND: HISTORY: Evaluate cervical length. FINDINGS: Cervical length is between 1.2 and 3.4 cm. heart tones: 136 bpm. Right-sided placenta. No previa. BPD 7.61 cm, 30 weeks 4 days. Head circumference 27.29 cm, 29 weeks 6 days. Abdominal circumference 27.09 cm, 31 weeks 1 day. Femur length 5.72 cm, 30 weeks 0 days. Amniotic fluid 18.5 cm. Estimated weight is 1606 g +/- 38 g. Estimated weight percentage is 87%. Average age by sonography is 29 weeks 6 days. IMPRESSION: Single gestation. Average age by sonography is 29 weeks 6 days. Estimated weight is 1606 g +/- 238 g. Cervical length is between 1.2 and 3.4 cm. Findings of the cervical length were conveyed to Dr. Diana by the chain carrier at 03/16/2020 2:55 PM Code CR Transcribed Date/Time: 03/16/2020 3:23 PM
[2020-03-16] MEDS ORDERED: Promethazine HCl 25 MG/ML VIAL IM PRN (15:33)
[2020-03-16 16:32] LABS: Hemoglobin 10.4 g/dL (12.0-16.0); Mean Corpuscular HGB CONC 33.3 g/dL (32.0-36.0); Mean Corpuscular Hemoglobin 28.6 pg (27.0-31.0); Mean Corpuscular Volume 85.8 fL (78.0-98.0); Mean Platelet Volume 8.9 fL (7.4-10.4); Platelet Count 190 thou/uL (130-400); Red Blood Cell (RBC) Count 3.64 mill/uL (4.20-5.40); White Blood Cell (WBC) Count 14.4 thou/uL (4.8-10.8)
[2020-03-16 16:53] LABS: ALT (SGPT) 178 U/L (8-55); AST (SGOT) 188 U/L (5-34); Alkaline Phosphatase 116 U/L (40-110); Anion Gap 15 mmol/L (10-20); BUN (Urea Nitrogen) 4 mg/dL (7.0-18.7); Bilirubin, Total 0.2 mg/dL (0.2-1.2); Calc. Creatinine Clearance 196 mL/min (70-130); Calcium 8.7 mg/dL (7.8-10.44); Carbon Dioxide 22 mmol/L (22-29); Chloride 106 mmol/L (98-107); Estimated GFR-MDRD Greater than 90; Globulin 3.8 g/dL (2.4-3.5); Glucose 68 mg/dL (70-105); Potassium 3.8 mmol/L (3.5-5.1); Protein, Total 6.8 g/dL (6.0-8.3); Sodium 139 mmol/L (136-145)
[2020-03-16 17:04] LABS: HBSAg Index 0.13 S/CO (0-0.99); Hep B Surf Ag Non-Reactive S/CO (NonReactive)
[2020-03-16 17:06] LABS: Syphilis Antibody Nonreactive (Nonreactive); Syphilis Antibody Index 0.04 S/CO (<1.00 Non-Reactive)
[2020-03-16] MEDS ORDERED: Betamet Acet/Betamet Na Ph 30 MG/5 ML VIAL ONE (17:18)
[2020-03-16 17:43] LABS: INR-International Normal Ratio 1.1; PTT 30.3 sec (22.9-36.1); Prothrombin Time 13.8 sec (12.0-14.7)
[2020-03-16] MEDS: metroNIDAZOLE 0.75% 70 GM TUBE VAG SCH (22:02)
[2020-03-16] MEDS: Ondansetron PF 4 MG/2 ML Vial IVP PRN (22:02)
--- NOTE | 2020-03-16 22:20 | HP ---
PRIMARY OB: Dr. Joceline Amin. CHIEF COMPLAINT: Abdominal pains. HISTORY OF PRESENT ILLNESS: Patient is a 34-year-old G2, P1 female, with an intrauterine at 29 weeks and a day, presenting to Labor and Delivery with complaints of cramping that she started last night. Patient has come to have evaluated for possible labor. Patient reports that she continues to have problems with nausea and vomiting and has been refractory to and has failed to be controlled well with outpatient management. She reports that she has not taken any antiemetics today. She does deny fever, cough, headache, chest pain, shortness of breath, diarrhea, constipation, any new rashes, hip problems, knee problems, or muscle weakness. She denies vaginal bleeding. She does report that she has had a mucousy discharge since yesterday. She denies urinary urgency or frequency. PAST MEDICAL HISTORY: Axenfeld syndrome. PAST SURGICAL HISTORY: She has had 1 prior . She had surgery on her skull and surgery for an arm fracture. OBSTETRIC HISTORY: HELLP syndrome at 33 weeks with her previous . SOCIAL HISTORY: Denies drug, alcohol, or tobacco use. MEDICATIONS: 1. Vitamin D. 2. Low-dose aspirin. 3. vitamins. 4. Bonjesta. 5. Zofran. 6. Phenergan. 7. DHEA. 8. CoQ10. ALLERGIES: LATEX. OB LABS: Unavailable at the time of dictation. REVIEW OF SYSTEMS: Per HPI. PHYSICAL EXAMINATION: VITAL SIGNS: Blood pressure is 129/75, heart rate of 89, respiratory rate of 18 , saturating 97% on room air, and temperature 98.5. GENERAL: She appears to be in no acute distress. She is alert, oriented, cooperative, and pleasant to interact with. HEAD: Normocephalic and atraumatic. LUNGS: Clear to auscultation bilaterally. HEART: Regular rate and rhythm. ABDOMEN: Gravid, soft, and nontender. EXTREMITIES: Nontender and nonedematous. GENITOURINARY: Vulva without masses, lesions, or erythema. Vagina is moist. Speculum exam was extremely difficult due to patient intolerance. The cervix was visualized, appeared to be full. There was a significant amount of white smooth discharge, difficult to get a clear complete visualization of the cervix. However, there did not appear to have any hourglassing membranes or visible membranes. Due to the difficulty of the speculum exam, the cervical exam was deferred to later. DIAGNOSTIC DATA: heart tracing shows the fetus with a baseline in the 130s with moderate long-term variability, appropriate for a 29-week gestation with 15 x 15 accelerations. Tocometer is not showing any contractions visible or irritability. Ultrasound demonstrated a fetus in vertex presentation. Cervical length is about 1 cm with U-shaped funneling. weight 1606 g. LABORATORIES: Labs show positive fibronectin. Urine significant for 20 of ketones, 250 leukocyte esterase, 4 to 6 white blood cells, VPIII is positive for bacterial vaginosis, Gardnerella, negative for yeast or Trichomonas. ASSESSMENT AND PLAN: Patient is a 34-year-old female, with an intrauterine at 29 weeks and a day, complicated by persistent nausea and vomiting difficult to manage outpatient. She has had multiple admissions to the hospital for fluid hydration and evaluation. Today, the patient presents with cramping, though I do not see any evidence of active labor at this time. Patient does have a foreshortened cervix with funneling indicating need for admission, steroid administration, and observation for labor. Patient will be treated with Metrogel for bacterial vaginosis. Should she experience any signs of active labor, we will also add magnesium for tocolysis. Job ID: [id number] [facility]
[2020-03-16] MEDS: Aspirin 81 mg Enteric Coated Tablet PO SCH (23:03)
--- NOTE | 2020-03-17 08:34 | PDOC.LDPN ---
Labor & Delivery Progress Note - Subjective Subjective: other (abdominal cramping, diffuse and nausea, no emesis. No VB LOF. Good FM) - Objective Vital signs reviewed and normal: yes Abnormal vital signs: mild range BP 140 systolic General: NAD Uterine fundus: non tender FHT: category 1 [place] contractions every: none - Assessment (1) Short cervix affecting Code(s): O26.879 - CERVICAL SHORTENING, UNSPECIFIED TRIMESTER Current Visit: Yes Status: Acute (2) Elevated LFTs Code(s): R79.89 - OTHER SPECIFIED ABNORMAL FINDINGS OF BLOOD CHEMISTRY Current Visit: Yes Status: Acute (3) Nausea and vomiting during Code(s): O21.9 - VOMITING OF , UNSPECIFIED Current Visit: Yes Status: Acute -: HD#2 Short cervix- no ctx on monitor, cont bedrest and BMZ administration, no e/o PTL , will mag if delivery appears imminent Elevated LFT- stable from 3d prior, trend daily, no sx PIH, glucose low, plt 190. W/u with additional labs to eval for AFLP and gallbladder or underlying liver condition. Other consideration is from toxicity of medications. Will DC phenergan for now. N/V- ok currently, pt kaylie reg diet, will get dietary for calorie count to eval for supplements and adequacy of diet. Zofran IV prn and cont IVF. NST Cat 1 for GA, cont q shift monitoring S=D, ceph Prior CS x 1 for repeat Hx HELLP at 33w- on baby ASA Cont Inpt care.
[2020-03-17] MEDS: Ondansetron PF 4 MG/2 ML Vial IVP PRN ×3 (08:41→21:52)
[2020-03-17 09:30] LABS: #Basophils 0.1 thou/uL (0.0-0.2); #Eosinphils 0.1 thou/uL (0.0-0.7); #Monocytes 0.6 thou/uL (0.11-0.59); #Neutrophils 13.9 thou/uL (1.40-6.50); %Basophils 0.3 % (0.0-1.0); %Eosinophils 0.5 % (0.0-10.0); %Lymphocytes 11.9 % (21.0-51.0); %Monocytes 3.6 % (0.0-10.0); %Neutrophils 83.6 % (42.0-75.0); Hemoglobin 10.3 g/dL (12.0-16.0); Mean Corpuscular HGB CONC 33.2 g/dL (32.0-36.0); Mean Corpuscular Hemoglobin 28.1 pg (27.0-31.0); Mean Corpuscular Volume 84.8 fL (78.0-98.0); Mean Platelet Volume 9.7 fL (7.4-10.4); Platelet Count 169 thou/uL (130-400); Red Blood Cell (RBC) Count 3.66 mill/uL (4.20-5.40); White Blood Cell (WBC) Count 16.6 thou/uL (4.8-10.8)
[2020-03-17 09:40] LABS: ALT (SGPT) 189 U/L (8-55); AST (SGOT) 194 U/L (5-34); Albumin 3.1 g/dL (3.5-5.0); Alkaline Phosphatase 115 U/L (40-110); Anion Gap 17 mmol/L (10-20); BUN (Urea Nitrogen) 5 mg/dL (7.0-18.7); Bilirubin, Total 0.2 mg/dL (0.2-1.2); Calc. Creatinine Clearance 163 mL/min (70-130); Carbon Dioxide 18 mmol/L (22-29); Chloride 107 mmol/L (98-107); Estimated GFR-MDRD Greater than 90; Globulin 3.6 g/dL (2.4-3.5); Glucose 153 mg/dL (70-105); Potassium 3.7 mmol/L (3.5-5.1); Protein, Total 6.7 g/dL (6.0-8.3); Sodium 138 mmol/L (136-145); Uric Acid 5.1 mg/dL (2.6-6.0)
--- NOTE | 2020-03-17 13:05 | ULT ---
EXAM: US Gallbladder RUQ CLINICAL HISTORY: 20 weeks . Elevated liver functions tests. Nausea and vomiting.. COMPARISON: 12/27/2019 FINDINGS: Pancreas: The head of the pancreas has a normal echotexture. The remainder the pancreas is obscured by bowel gas Liver:Increased hepatic parenchymal echotexture may be due to hepatic steatosis or hepatocellular dis ease. Subsequent limited evaluation for hepatic masses and intrahepatic biliary dilatation. Right hepatic lobe: 16.2 cm Gallbladder: No sonographic evidence of cholelithiasis, gallbladder wall thickening or pericholecysti c fluid. Ulloa's sign:Negative Portal Vein: Patent. Appropriate directional flow Bile ducts: Suboptimal evaluation the common bile duct. Right kidney: No hydronephrosis. Right kidney measures 5.1 x 4.3 x 11.0 cm in length. IMPRESSION: 1. Heterogeneous echotexture liver may be due to hepatic steatosis or hepatocellular disease. If ther e is concern for hepatic masses, additional imaging can be performed. 2. No sonographic evidence of cholelithiasis or cholecystitis. 3. No evidence of hydronephrosis 4. Suboptimal evaluation of the common bile duct
[2020-03-17] MEDS: Lactated Ringer's 1,000 ML IV SCH ×2 (16:20→18:27)
[2020-03-17] MEDS: Betamet Acet/Betamet Na Ph 30 MG/5 ML VIAL IM SCH ×2 (18:05→18:06)
[2020-03-17] MEDS: metroNIDAZOLE 0.75% 70 GM TUBE VAG SCH (21:49)
[2020-03-18 03:41] LABS: Amnisure Test No Membranes Rupture (No Rupture)
[2020-03-18 03:42] LABS: Amnisure Internal Control QC ACCEPTABLE (ACCEPTABLE)
[2020-03-18 07:11] LABS: #Eosinphils 0.1 thou/uL (0.0-0.7); #Lymphocytes 1.8 thou/uL (1.20-3.40); #Monocytes 0.7 thou/uL (0.11-0.59); #Neutrophils 14.3 thou/uL (1.40-6.50); %Basophils 0.2 % (0.0-1.0); %Eosinophils 0.3 % (0.0-10.0); %Lymphocytes 10.6 % (21.0-51.0); %Monocytes 4.3 % (0.0-10.0); %Neutrophils 84.5 % (42.0-75.0); Mean Corpuscular HGB CONC 33.2 g/dL (32.0-36.0); Mean Corpuscular Hemoglobin 28.4 pg (27.0-31.0); Mean Corpuscular Volume 85.7 fL (78.0-98.0); Mean Platelet Volume 8.4 fL (7.4-10.4); Platelet Count 176 thou/uL (130-400); RBC Distribution Width 12.1 % (11.5-14.5); Red Blood Cell (RBC) Count 3.53 mill/uL (4.20-5.40); White Blood Cell (WBC) Count 16.9 thou/uL (4.8-10.8)
[2020-03-18 07:38] LABS: ALT (SGPT) 321 U/L (8-55); AST (SGOT) 422 U/L (5-34); Albumin 3.1 g/dL (3.5-5.0); Alkaline Phosphatase 115 U/L (40-110); Anion Gap 13 mmol/L (10-20); BUN (Urea Nitrogen) 4 mg/dL (7.0-18.7); Bilirubin, Total 0.2 mg/dL (0.2-1.2); Calc. Creatinine Clearance 196 mL/min (70-130); Calcium 8.7 mg/dL (7.8-10.44); Carbon Dioxide 21 mmol/L (22-29); Chloride 107 mmol/L (98-107); Estimated GFR-MDRD Greater than 90; Globulin 3.5 g/dL (2.4-3.5); Glucose 104 mg/dL (70-105); Potassium 3.6 mmol/L (3.5-5.1); Protein, Total 6.6 g/dL (6.0-8.3); Sodium 137 mmol/L (136-145)
[2020-03-18] MEDS: Ondansetron PF 4 MG/2 ML Vial IVP PRN (08:41)
[2020-03-18] MEDS: Prenatal Vitamin 1 TAB PO SCH (08:41)
[2020-03-18] MEDS ORDERED: Famotidine 40 MG/5 ML Oral Suspension PO SCH (09:00)
[2020-03-18] MEDS ORDERED: Famotidine 20 MG TAB PO SCH (09:00)
[2020-03-18] MEDS: Lactated Ringer's 1,000 ML IV SCH ×2 (10:02→16:35)
[2020-03-18] MEDS: Famotidine 40 MG/5 ML Oral Suspension PO SCH (10:11)
--- NOTE | 2020-03-18 12:29 | PDOC.LDPN ---
Labor & Delivery Progress Note - Subjective Subjective: other (diffuse abd cramping 06/04, no VB LOF. Good FM. Nauseated. Emesis x 1 yesterday. No constipation. +spots in vision, no GARRISON.) - Objective Vital signs reviewed and normal: yes General: NAD Uterine fundus: non tender FHT: category 1 [place] contractions every: none - Assessment (1) Short cervix affecting Code(s): O26.879 - CERVICAL SHORTENING, UNSPECIFIED TRIMESTER Current Visit: Yes Status: Acute (2) Elevated LFTs Code(s): R79.89 - OTHER SPECIFIED ABNORMAL FINDINGS OF BLOOD CHEMISTRY Current Visit: Yes Status: Acute (3) Nausea and vomiting during Code(s): O21.9 - VOMITING OF , UNSPECIFIED Current Visit: Yes Status: Acute -: HD#3 VSSAF Abd pain- No e/o PTL on monitor. s/p BMZ for prematurity. Cramping is unrelated to Elevated LFTs- went up significantly today, neg RUQ sono and labs for HELLP or APLS. BP wnl. Consult GI for further recs. N/V- premed with zofran for meals, start calorie count for adequacy of intake, start pepcid BID NST Cat 1 for GA Prior CS x 1 for repeat Start PNV and Iron Transfer to floor.
[2020-03-18 13:35] LABS: Creatinine, Urine 61.2 mg/dL (47-110)
[2020-03-18 14:03] VITALS: BP 117/58; TEMP 98.6
[2020-03-18] MEDS: Butorphanol Tartrate 1 MG/ML VIAL SLOW IVP PRN (14:08)
[2020-03-18 15:56] LABS: ALT (SGPT) 378 U/L (8-55); AST (SGOT) 475 U/L (5-34); Albumin 3.3 g/dL (3.5-5.0); Alkaline Phosphatase 117 U/L (40-110); Bilirubin, Direct 0.1 mg/dL (0.1-0.3); Bilirubin, Total 0.2 mg/dL (0.2-1.2); Protein, Total 6.8 g/dL (6.0-8.3)
[2020-03-18] MEDS ORDERED: Calcium Gluc 4.6 MEQ/10 ML (100 MG/ML) SLOW IVP PRN (16:03)
--- NOTE | 2020-03-18 16:18 | PRG ---
DATE OF SERVICE: 03/18/2020 SUBJECTIVE: Her primary OB, Dr. Amin, who is in the office currently asked that I come by to evaluate Ms. Koehler, who had complaints of pelvic and back pains. The patient is a 34-year-old female with an intrauterine at 29 weeks and 3 days, who was admitted to the hospital for steroids and observation due to acute shortening of her cervix. In the meantime, the patient was noted to have rising LFTs; however, no other signs or symptoms of preeclampsia or HELLP syndrome. Today, in evaluating the patient, the patient reports that she is having pain all over and is unable to give any specific locations. OBJECTIVE: VITAL SIGNS: Blood pressure 117/58, heart rate of 114, temperature 98.6, respiratory rate of 20, saturating 97% on room air. GENERAL: She appears to be in a state of anxiousness, but does not appear to be as difficult to assess the level of distress she may be in. MUSCULOSKELETAL: On physical exam, she reports tenderness to palpation in any location including her back, her paravertebral muscles, her SI joint, her shoulder, her arm, her belly with light or deep palpation. ABDOMEN: During my examination, did not feel any tightening of her uterus. CERVICAL: Exam performed by one of the nursing staff given the difficult nature of her exam reports that her cervix is unchanged from my report on initial presentation of being fingertip. LABORATORY DATA: In reviewing lab work from this morning; her LFTs have acutely elevated from yesterday more than doubling from 194 to 422. This is a significant change as her LFTs sent for the previous 5 days or so, had been stable at around the upper 180s. Also reviewing lab work, her uric acid is noted to be at 5.1. Her urine protein to creatinine ratio has elevated slightly to 0.25 from 0.15. ASSESSMENT AND PLAN: At this time, it is difficult to establish the cause of the patient's reported pain. She does not appear to be having any signs of labor. This could be an outer expression of her anxiety. This could be musculoskeletal pain just associated with changes in her day-to-day routine being in the bed for much longer periods of time. However, in reviewing her labs, I have repeat her LFTs today at this time to see if we are having anymore acute changes. She does have some soft markers pointing toward possible development of preeclampsia or HELLP syndrome, though nothing concrete, except for some isolated rising in her LFTs. She does have a history of HELLP syndrome at 33 weeks with her previous . Plan at this point in time, after reviewing the findings with her doctor, Dr. Amin, is to transfer her to Labor and Delivery. Start magnesium for neuroprotection while we are continuing this workup. The patient has received steroids for lung maturity and NICU has been contacted and is made aware of potential delivery in the near coming days. Job ID: [id number]
[2020-03-18] MEDS: Magnesium Sulfate 20 gm/500 ml 20 GM/500 ML BAG IVPB SCH (17:43)
[2020-03-18 17:53] LABS: PTT 25.5 sec (22.9-36.1); Prothrombin Time 13.2 sec (12.0-14.7)
[2020-03-18 17:58] LABS: Fibrinogen 656 mg/dL (253-463)
[2020-03-18 18:31] LABS: FSP-Qualitative Normal (Normal); FSP-Semiquantitative LESS THAN 5 mcg/mL (Less than 5)
[2020-03-18] MEDS: Meperidine HCl/PF 25 MG/ML VIAL SLOW IVP PRN (19:44)
[2020-03-18] MEDS: Promethazine HCl 12.5 MG in Sodium Chloride 0.9% 50 ML IVPB PRN (19:47)
[2020-03-18] MEDS: Aspirin 81 mg Enteric Coated Tablet PO SCH (22:19)
[2020-03-18] MEDS: metroNIDAZOLE 0.75% 70 GM TUBE VAG SCH (22:19)
[2020-03-19] MEDS: Meperidine HCl/PF 25 MG/ML VIAL SLOW IVP PRN (03:43)
[2020-03-19] MEDS: Magnesium Sulfate 20 gm/500 ml 20 GM/500 ML BAG IVPB SCH ×2 (03:46→12:45)
[2020-03-19] MEDS: Lactated Ringer's 1,000 ML IV SCH ×3 (03:47→19:49)
[2020-03-19] MEDS: Famotidine 40 MG/5 ML Oral Suspension PO SCH ×2 (03:47→10:15)
[2020-03-19] MEDS: Ferrous Sulfate 325 MG TAB PO SCH ×3 (03:47→20:28)
[2020-03-19] MEDS: Ondansetron PF 4 MG/2 ML Vial IVP PRN ×2 (04:06→10:08)
[2020-03-19 04:50] LABS: #Basophils 0.1 thou/uL (0.0-0.2); #Eosinphils 0.1 thou/uL (0.0-0.7); #Lymphocytes 2.2 thou/uL (1.20-3.40); #Monocytes 1.1 thou/uL (0.11-0.59); #Neutrophils 10.9 thou/uL (1.40-6.50); %Basophils 0.4 % (0.0-1.0); %Eosinophils 0.6 % (0.0-10.0); %Lymphocytes 15.7 % (21.0-51.0); %Monocytes 7.4 % (0.0-10.0); Hemoglobin 9.5 g/dL (12.0-16.0); Mean Corpuscular HGB CONC 32.2 g/dL (32.0-36.0); Mean Corpuscular Hemoglobin 27.7 pg (27.0-31.0); Mean Platelet Volume 8.9 fL (7.4-10.4); Platelet Count 193 thou/uL (130-400); RBC Distribution Width 12.2 % (11.5-14.5); Red Blood Cell (RBC) Count 3.43 mill/uL (4.20-5.40); White Blood Cell (WBC) Count 14.3 thou/uL (4.8-10.8)
[2020-03-19 04:54] LABS: Fibrinogen 723 mg/dL (253-463)
[2020-03-19 04:55] LABS: PTT 25.7 sec (22.9-36.1)
[2020-03-19 05:16] LABS: FSP-Qualitative Normal (Normal); FSP-Semiquantitative <5 mcg/mL (Less than 5)
[2020-03-19 05:44] LABS: ALT (SGPT) 363 U/L (8-55); AST (SGOT) 423 U/L (5-34); Acetaminophen Less than 6.0 mcg/mL (10.0-30.0); Alkaline Phosphatase 106 U/L (40-110); Anion Gap 13 mmol/L (10-20); BUN (Urea Nitrogen) 4 mg/dL (7.0-18.7); Bilirubin, Total 0.2 mg/dL (0.2-1.2); Calc. Creatinine Clearance 196 mL/min (70-130); Calcium 7.3 mg/dL (7.8-10.44); Carbon Dioxide 23 mmol/L (22-29); Chloride 105 mmol/L (98-107); Estimated GFR-MDRD Greater than 90; Globulin 3.4 g/dL (2.4-3.5); Glucose 113 mg/dL (70-105); Lipase 17 U/L (8-78); Potassium 3.4 mmol/L (3.5-5.1); Protein, Total 6.4 g/dL (6.0-8.3); Sodium 138 mmol/L (136-145)
--- NOTE | 2020-03-19 07:21 | CON ---
DATE OF CONSULTATION: 03/18/2020 REASON FOR CONSULT: Elevated liver enzymes. HISTORY OF PRESENT ILLNESS: Ms. Koehler is a pleasant 34-year-old female, who is about 39 weeks , who came in as she was having lower abdominal pain and was concerned she was going into labor. She described this as cramping, it was not quite like labor cramps. She did pass some mucus as well. She apparently has been evaluated for labor and not felt to be in labor, was moved to the medical floor and it was decided to keep her admitted because her LFTs were up. This has been noted to start late last week. Additionally, she states she has had continuous problems with nausea and vomiting throughout her . This started about week 10 to 12, intermittently she has had to come in for IV fluids. She denies any fever, cough, headaches. She has no chest pain or shortness of breath. She denies diarrhea or constipation, rashes, myalgias, or arthralgias. She has had no vaginal bleeding. She denies any sick contacts with viral-like symptoms, respiratory or GI. She denies starting any new medications. She had delivery in 03/2017. At that time, she underwent labor at 33 weeks with possibly component of mild HELLP syndrome at that time as well. She was noted to have abnormal liver enzymes at the end of that as well. PAST MEDICAL HISTORY: Axenfeld syndrome. PAST SURGICAL HISTORY: Occipital skull, piece of bone, surgery for arm fracture as well. She is 2, para 0-1-0-1, dates for are in vitro fertilization. ALLERGIES: LATEX. FAMILY HISTORY: Negative for liver disorders. SOCIAL HISTORY: Negative for alcohol, drugs, or tobacco. REVIEW OF SYSTEMS: Negative for rashes, myalgias, or arthralgias. No history of psychiatric disorder. No history of heavy NSAID or Tylenol use, or supplement use. MEDICATIONS: 1. Vitamin D. 2. Low-dose aspirin. 3. vitamins. 4. Bonjesta. 5. Zofran. 6. Phenergan. 7. DHEA. 8. CoQ10. Present medications: 1. Ecotrin. 2. Stadol p.r.n. 3. Calcium gluconate p.r.n. 4. Pepcid 20 mg p.o. b.i.d. 5. Iron sulfate b.i.d. with meals. 6. Lactated Ringer's 125 an hour. 7. Magnesium sulfate drip. 8. Metronidazole. 9. Zofran. 10. Multivitamin. 11. Phenergan. 12. She received betamethasone q.24 hours yesterday and today. PHYSICAL EXAMINATION: She is resting comfortably in bed. Her mother is at the bedside. VITAL SIGNS: Pulse 94 to 92, this afternoon at 1300 hours, it went up to 114. Blood pressure 129/75 on admission, now 117/58. She is afebrile, O2 saturation 97%. GENERAL: She is resting comfortably in bed. HEENT: Pupils are equal, round, reactive to light and accommodation. Extraocular muscles are intact. Conjunctiva and sclera are clear. NECK: Supple without any adenopathy. LUNGS: Clear. ABDOMEN: Soft. There is no palpable hepatosplenomegaly. Abdomen is gravid. There is no overt tenderness in the right upper quadrant. There is no rebound. There is no guarding. EXTREMITIES: No clubbing, cyanosis, or edema. LABORATORY STUDIES: Labs today; white count 16.9, 16.9 yesterday, 14.1 on 03/16, 13.1 on 03/13 and 12.0 on 08/01/2019. Hemoglobin is 10, it was 10.4 on the . Platelet count 176, it was 190 on the , 203 on the , 269 on 08/01/2019. Fibrinogen was 755. INR 1.1, PTT 30, PT 13 on the . Liver function tests today, AST and ALT are 475 and 378, alkaline phosphatase 117, bilirubin 0.2, albumin 3.3, direct bilirubin 0.1, total bilirubin 0.2. Liver function tests at 0700 this morning, the AST and ALT are a little bit lower at 422 and 321, alkaline phosphatase was 115. On the , they were 194 and 189 with alkaline phosphatase of 115. On 03/16, they were 188 and 138 with alkaline phosphatase of 116. On 02/12, they were 25 and 22 with alkaline phosphatase 116. On 01/11/2020, they were 20 and 23. Lipase not done this admission. Electrolytes normal. Urine showed protein random 15, it was 17 on the . Creatinine 61, it was 107 on the . Amino swab test on the negative. Serology, hepatitis B surface antigen negative on 03/16. Syphilis IgG IgM negative on the . Hepatitis A IgM negative on the . Hep B core IgM negative on the . C antibody negative on the . IMAGING STUDIES: Abdominal ultrasound 03/17, increased hepatic echotexture consistent with fatty liver. Right hepatic liver lobe was 16.2 cm. No mass or hepatic duct dilatation. Gallbladder, no stones, no gallbladder wall thickening. Portal vein is patent with appropriate flow direction. ASSESSMENT: This is a 34-year-old female at 39 weeks intrauterine , who was admitted for possible labor with no evidence of that presently. Is having rising liver function tests. She had a previous preeclampsia or HELLP variant at last delivery in 2017. Her liver enzymes began to go up late last week. They were normal earlier in . An ultrasound revealed no portal vein thrombosis. There was no comment on hepatic vein thrombosis. She has had nausea and vomiting throughout the . She has mild proteinuria. No edema and no hypertension. The concern here would be that we could be moving towards preeclampsia or HELLP or this could be just acute fatty liver of . The possibility of a Budd-Chiari like syndrome is something that needs to be evaluated. She is being transferred to Labor and Delivery, which I agree with. We will check atypical hepatitis E, CMV and EBV. She has received steroids for lung maturation. I think that if her liver enzymes continue to drop, it may be reasonable to consider induction of labor. I will ask Cardiology to re-evaluate her ultrasound with Dopplers to rule out Budd-Chiari. Job ID: [id number]
[2020-03-19] MEDS: Promethazine HCl 12.5 MG in Sodium Chloride 0.9% 50 ML IVPB PRN (07:47)
--- NOTE | 2020-03-19 07:57 | ULT ---
US Hepatic Doppler: 03/19/2020 5:05 PM CLINICAL HISTORY: Elevated LFTs. STUDY: Right upper quadrant ultrasound of liver. TECHNIQUE: Multiplanar grayscale and color Doppler images were obtained in a ultrasound of the right upper quadrant of the abdomen. Spectral analysis of the Doppler waveforms of the hepatic and splenic vessels were performed. COMPARISON: Gallbladder ultrasound 03/17/2020 FINDINGS: Liver: Size: Normal. Echogenicity: Hyperechoic consistent with hepatic steatosis. Contour: Smooth. Mass: None. Bile ducts: No intrahepatic biliary dilatation. Gallbladder: Normal. Pancreas: Head, body, and tail appear normal. Hepatic veins: Normal waveforms. Normal directional flow. Portable veins: Normal waveforms. Normal directional flow. Hepatic arteries: Normal waveforms. Normal directional flow. Splenic vein: Normal waveforms. Normal directional flow. Splenic artery: Normal waveforms. Normal directional flow. There is mild bilateral hydronephrosis. IMPRESSION: 1. Fatty liver 2. Mild bilateral hydronephrosis may be secondary to compression on the distal ureters by the h ead.
[2020-03-19] MEDS: Calcium Carbonate 500 MG ChewTAB PO SCH (10:16)
[2020-03-19] MEDS: Prenatal Vitamin 1 TAB PO SCH (10:17)
[2020-03-19] MEDS: Cyclobenzaprine 10 MG TAB PO PRN ×2 (10:53→22:37)
--- NOTE | 2020-03-19 13:01 | PRG ---
DATE OF SERVICE: 03/19/2020 SUBJECTIVE: Ms. Koehler complains of pain all over, but mostly all over her abdomen. She has had nausea and is taking very little oral intake. No vomiting however. OBJECTIVE: VITAL SIGNS: Her blood pressure is 132/61, pulse 102. She is afebrile. GENERAL: She is in no acute distress. Alert and oriented x3. LUNGS: Clear to auscultation bilaterally. HEART: Tachycardic S1 and S2. No murmur. ABDOMEN: She has a gravid uterus. She is not tender to palpation. Bowel sounds are present. EXTREMITIES: No lower extremity edema. LABORATORY DATA: White blood cell count 14.3, hemoglobin 9.5, platelets 193. INR 1.0. Fibrinogen 723. Creatinine 0.5, bilirubin 0.2, AST 423, ALT 363, alkaline phosphatase 106, ammonia 29, albumin 3.0, lipase 17. IMPRESSION: Abnormal liver function tests and abdominal pain. Her pattern of acute hepatocellular injury and new fatty liver on ultrasound are most consistent with fatty liver of . Her transaminases have stabilized today. Her liver function itself remains well compensated with the normal bilirubin, normal INR, no encephalopathy, and normal ammonia. Her platelets are normal. She is not hypertensive. Her fibrinogen is elevated. Obstetrics is following her in Labor and Delivery and we are continuing to monitor her liver function. I will send additional labs to check for other causes of liver disease as well. Ultrasound shows no sign of hepatic vein thrombosis. I will recheck an acute viral hepatitis panel and markers for autoimmune hepatitis. RECOMMENDATIONS: I will send labs for repeat acute hepatitis viral panel, she has a COVID test pending, we will send mitochondrial antibody and smooth muscle antibody as well as alpha-1 antitrypsin level and ceruloplasmin. Job ID: [id number]
[2020-03-19 14:19] LABS: Iron 45 ug/dL (50-170); Iron Binding Capacity, Total 634 mcg/dL (265-497)
[2020-03-19] MEDS ORDERED: Promethazine HCl 25 MG/ML VIAL ONE (14:40)
[2020-03-19] MEDS: Promethazine HCl 25 MG/ML VIAL IM PRN ×2 (14:42→21:18)
[2020-03-19 14:49] LABS: Hep A IgM AB Non-Reactive (NonReactive); Hep B Surf Ag Non-Reactive S/CO (NonReactive); Hep C IgG Ab Non-Reactive (NonReactive); Hep C Index 0.05 S/CO (0-0.79); Hepatitis B Core IgM Abs Non-Reactive (NonReactive)
[2020-03-19 14:50] LABS: HBCM Index 0.06 S/CO (0-0.79); HBSAg Index 0.16 S/CO (0-0.99)
[2020-03-19] MEDS ORDERED: Lidocaine 1% PF 5 ML VIAL ONE (15:25)
--- NOTE | 2020-03-19 15:42 | PDOC.LDPN ---
Labor & Delivery Progress Note - Subjective Subjective: other (entire body is sore, nauseated, headaches. Good FM, no ctx. No emesis yesterday. No fever/chills) - Objective Vital signs reviewed and normal: yes General: NAD Uterine fundus: non tender FHT: category 1 [place] contractions every: none - Assessment (1) Short cervix affecting Code(s): O26.879 - CERVICAL SHORTENING, UNSPECIFIED TRIMESTER Current Visit: Yes Status: Acute (2) Elevated LFTs Code(s): R79.89 - OTHER SPECIFIED ABNORMAL FINDINGS OF BLOOD CHEMISTRY Current Visit: Yes Status: Acute (3) Nausea and vomiting during Code(s): O21.9 - VOMITING OF , UNSPECIFIED Current Visit: Yes Status: Acute
[2020-03-19 17:56] LABS: ANA Symphony (Qualitative) Negative (Negative); ANA Symphony (Quantitative) 0.1 Ratio (< 0.7 Negative); EliA Vaculitis New Method **** NEW METHOD ****; Mitochondrial Ab 0.9 U/mL (<4 Negative); dsDNA IgG Antibody 0.6 IU/mL (<10 Negative)
[2020-03-19] MEDS: Meperidine HCl/PF 25 MG/ML VIAL IM PRN (18:16)
[2020-03-19] MEDS: Potassium Chloride 20 MEQ TAB PO SCH (20:28)
[2020-03-19] MEDS: Zolpidem Tartrate 5 MG TAB PO SCH (22:38)
[2020-03-20] MEDS: metroNIDAZOLE 0.75% 70 GM TUBE VAG SCH (00:30)
[2020-03-20] MEDS: Calcium Carbonate 500 MG ChewTAB PO SCH ×3 (00:30→21:06)
[2020-03-20] MEDS: Meperidine HCl/PF 25 MG/ML VIAL IM PRN (00:59)
[2020-03-20 05:21] LABS: #Eosinphils 0.1 thou/uL (0.0-0.7); #Lymphocytes 2.2 thou/uL (1.20-3.40); #Monocytes 1.1 thou/uL (0.11-0.59); #Neutrophils 12.3 thou/uL (1.40-6.50); %Basophils 0.3 % (0.0-1.0); %Eosinophils 0.8 % (0.0-10.0); %Monocytes 6.8 % (0.0-10.0); %Neutrophils 78.1 % (42.0-75.0); Hemoglobin 9.9 g/dL (12.0-16.0); Mean Corpuscular Hemoglobin 28.5 pg (27.0-31.0); Mean Corpuscular Volume 86.1 fL (78.0-98.0); Mean Platelet Volume 8.7 fL (7.4-10.4); Platelet Count 189 thou/uL (130-400); RBC Distribution Width 12.2 % (11.5-14.5); Red Blood Cell (RBC) Count 3.48 mill/uL (4.20-5.40); White Blood Cell (WBC) Count 15.8 thou/uL (4.8-10.8)
[2020-03-20 05:25] LABS: INR-International Normal Ratio 1.1; Prothrombin Time 13.9 sec (12.0-14.7)
[2020-03-20 05:41] LABS: ALT (SGPT) 404 U/L (8-55); AST (SGOT) 417 U/L (5-34); Albumin 3.1 g/dL (3.5-5.0); Alkaline Phosphatase 112 U/L (40-110); Anion Gap 13 mmol/L (10-20); BUN (Urea Nitrogen) 7 mg/dL (7.0-18.7); Bilirubin, Total 0.3 mg/dL (0.2-1.2); Calc. Creatinine Clearance 185 mL/min (70-130); Calcium 8.3 mg/dL (7.8-10.44); Carbon Dioxide 24 mmol/L (22-29); Chloride 105 mmol/L (98-107); Estimated GFR-MDRD Greater than 90; Globulin 3.5 g/dL (2.4-3.5); Glucose 124 mg/dL (70-105); Potassium 3.8 mmol/L (3.5-5.1); Protein, Total 6.6 g/dL (6.0-8.3); Sodium 138 mmol/L (136-145); Uric Acid 5.2 mg/dL (2.6-6.0)
[2020-03-20] MEDS: Famotidine 40 MG/5 ML Oral Suspension PO SCH ×3 (06:03→21:04)
[2020-03-20] MEDS: Lactated Ringer's 1,000 ML IV SCH ×4 (06:06→20:01)
--- NOTE | 2020-03-20 07:57 | PRG ---
DATE OF SERVICE: 03/20/2020 TIME OF SERVICE: 07:30. SUBJECTIVE: The patient is resting comfortably. Vital signs are stable. FHTs are 130. She reports status quo with her pain. There is really no evidence of labor. LABORATORY DATA: COVID-19 pending. White count slightly elevated secondary to corticosteroids. Hematocrit stable. Platelet count normal at 189. Coagulation factors were slightly elevated. PT at 13.9 with an INR 1.1, but otherwise not significantly changed from admission. Chemistry reveals a stable creatinine. LFTs are AST decreased from 475 to 417. ALT has increased to 378 to 404, alkaline phosphatase is 112. Ammonia is 215. EMILIANO and immunology screens were negative. Abdominal ultrasound was performed on 03/19 at 5 p.m. Interpretation reveals fatty liver, mild bilateral hydronephrosis. IMPRESSION: Complex at 29 weeks and 5 days. Without hypertension, acute fatty liver of seems unlikely, but cannot completely rule this out. We will continue to observe. The patient's COVID is pending, and the patient is receiving a PICC line today. We will check outpatient to Dr. Diana and discuss with Dr. Amin. Job ID: [id number]
[2020-03-20] MEDS: Potassium Chloride 20 MEQ TAB PO SCH ×2 (08:33→17:57)
[2020-03-20] MEDS: Ferrous Sulfate 325 MG TAB PO SCH ×2 (08:34→17:56)
[2020-03-20] MEDS: Prenatal Vitamin 1 TAB PO SCH (08:34)
--- NOTE | 2020-03-20 11:41 | SPC ---
Exam: Left A PICC line placement with ultrasound guidance HISTORY: patient, requiring IV access COMPARISON: none Exposure: 224 mGy/sq cm, 0.0 minutes FINDINGS: Successful left upper cavity PICC line placement. Single-lumen 40 cm 5 Sami catheter term inates in the right atrium. Catheter does flush and aspirate without difficulty TECHNIQUE: Consent obtained to perform a left upper extremity PICC line with ultrasound guidance. Lef t arm was prepped and draped in a sterile fashion. 1% lidocaine, buffered with sodium or, was used for local anesthesia. Under ultrasound guidance, micropuncture needle was used to cannulate the basil ic vein. A 0.018 guidewire was advanced through the needle to the level of the right atrium. Tract dilatation was performed. Single-lumen 5 Sami catheter was advanced over the wire. Wire does flush and aspirate without any difficulty. 40 cm trim length. Patient tolerated the procedure well. No immediate or postprocedure complications IMPRESSION: Successful left upper tree PICC line placement with ultrasound guidance.
[2020-03-20 11:54] LABS: Reference Lab Name LABCORP
[2020-03-20 11:55] LABS: Ref Lab Test Ordered HEV IGM
[2020-03-20 12:10] LABS: SARS-CoV-2 MS2 Positive; SARS-CoV-2 N Gene Negative; SARS-CoV-2 S Gene Negative; SARS-CoV-2 orf1ab Negative
[2020-03-20 12:15] LABS: EBV VCA IgM <36.0 U/mL (0.0-35.9); Nuclear AG IgG (EBNA) AB <18.0 U/mL (0.0-17.9)
[2020-03-20] MEDS: Promethazine HCl 12.5 MG in Sodium Chloride 0.9% 50 ML IVPB PRN (12:16)
[2020-03-20] MEDS: Meperidine HCl/PF 25 MG/ML VIAL SLOW IVP PRN (14:05)
--- NOTE | 2020-03-20 17:40 | PRG ---
DATE OF SERVICE: 03/20/2020 SUBJECTIVE: Ms. Koehler is tolerating some liquid, protein supplements. No vomiting today. Her abdominal pain is a little bit better today. PHYSICAL EXAMINATION: GENERAL: She is in no acute distress. She is alert and oriented x3. HEENT: Eyes have no scleral icterus. Oropharynx is clear without lesions. NECK: No cervical or supraclavicular lymphadenopathy. LUNGS: Clear to auscultation bilaterally. HEART: Regular rate and rhythm. ABDOMEN: Nontender. She has a gravid uterus. Her bowel sounds are active. EXTREMITIES: No lower extremity edema. IMPRESSION: Abnormal liver function tests. She had a rather acute rise in her liver tests during her 29-week gestation. Ultrasound shows fatty liver, that was not there a couple of months ago. She has adequate liver function as her bilirubin remains normal and her INR remains normal and her mental status is clear. Her albumin is low, but this is secondary to dietary factors and her chronic nausea and vomiting rather than the decline in her liver function. Her transaminases remain elevated, but are stable. Viral hepatitis screen repeat is negative. EMILIANO and mitochondrial antibody are negative. Smooth muscle antibody is pending. Ultrasound is negative for hepatic vein thrombosis. Overall, I would still favor acute fatty liver of , but if this is the case, it is very early and she does not have any evidence of rapid decline in liver function. We will continue to monitor her clinically. So far, other causes of liver disease are not seen. COVID is negative. She does not have hypertension or low platelets or significantly elevated urine protein to indicate HELLP at this point. RECOMMENDATIONS: Continue to monitor her liver tests and INR and mental status. If she has significant decline in her liver function with a significant rise in bilirubin or INR or altered mental status, then delivery would be indicated. Job ID: [id number]
[2020-03-20] MEDS: Ondansetron PF 4 MG/2 ML Vial IVP PRN (20:01)
[2020-03-20] MEDS: Docusate Calcium (SURFAK) 240 MG CAP PO SCH (21:06)
[2020-03-20] MEDS: Cyclobenzaprine 10 MG TAB PO PRN (22:00)
[2020-03-20] MEDS: Zolpidem Tartrate 5 MG TAB PO SCH (23:17)
[2020-03-21] MEDS: Lactated Ringer's 1,000 ML IV SCH ×3 (04:16→21:06)
[2020-03-21 04:46] LABS: #Basophils 0.1 thou/uL (0.0-0.2); #Eosinphils 0.2 thou/uL (0.0-0.7); #Lymphocytes 2.6 thou/uL (1.20-3.40); #Monocytes 0.9 thou/uL (0.11-0.59); #Neutrophils 10.4 thou/uL (1.40-6.50); %Basophils 0.5 % (0.0-1.0); %Eosinophils 1.7 % (0.0-10.0); %Lymphocytes 18.2 % (21.0-51.0); %Monocytes 6.2 % (0.0-10.0); %Neutrophils 73.5 % (42.0-75.0); Hemoglobin 10.3 g/dL (12.0-16.0); Mean Corpuscular HGB CONC 32.6 g/dL (32.0-36.0); Mean Corpuscular Hemoglobin 28.2 pg (27.0-31.0); Mean Corpuscular Volume 86.6 fL (78.0-98.0); Mean Platelet Volume 8.9 fL (7.4-10.4); Platelet Count 192 thou/uL (130-400); RBC Distribution Width 12.4 % (11.5-14.5); Red Blood Cell (RBC) Count 3.64 mill/uL (4.20-5.40); White Blood Cell (WBC) Count 14.1 thou/uL (4.8-10.8)
[2020-03-21 04:52] LABS: Prothrombin Time 13.4 sec (12.0-14.7)
[2020-03-21 05:24] LABS: ALT (SGPT) 356 U/L (8-55); AST (SGOT) 285 U/L (5-34); Albumin 3.1 g/dL (3.5-5.0); Alkaline Phosphatase 110 U/L (40-110); Anion Gap 12 mmol/L (10-20); BUN (Urea Nitrogen) 9 mg/dL (7.0-18.7); Bilirubin, Total 0.2 mg/dL (0.2-1.2); Calc. Creatinine Clearance 181 mL/min (70-130); Calcium 9.7 mg/dL (7.8-10.44); Carbon Dioxide 22 mmol/L (22-29); Chloride 107 mmol/L (98-107); Estimated GFR-MDRD Greater than 90; Globulin 3.5 g/dL (2.4-3.5); Glucose 129 mg/dL (70-105); Protein, Total 6.6 g/dL (6.0-8.3); Sodium 137 mmol/L (136-145)
[2020-03-21] MEDS: metroNIDAZOLE 0.75% 70 GM TUBE VAG SCH ×2 (08:06→21:14)
[2020-03-21] MEDS: Prenatal Vitamin 1 TAB PO SCH (08:15)
[2020-03-21] MEDS: Famotidine 40 MG/5 ML Oral Suspension PO SCH ×2 (08:15→21:10)
[2020-03-21] MEDS: Potassium Chloride 20 MEQ TAB PO SCH ×2 (08:15→17:45)
[2020-03-21] MEDS: Ferrous Sulfate 325 MG TAB PO SCH ×2 (08:15→17:45)
[2020-03-21] MEDS: Docusate Calcium (SURFAK) 240 MG CAP PO SCH ×2 (08:16→21:07)
[2020-03-21] MEDS: Calcium Carbonate 500 MG ChewTAB PO SCH ×2 (08:16→21:07)
--- NOTE | 2020-03-21 08:16 | PRG ---
DATE OF SERVICE: 03/21/2020 SUBJECTIVE: The patient is a 34-year-old female with an intrauterine at 29 weeks and 6 days, who is now on hospital day #5 for concerns of contractions and shortened cervical length with elevating LFTs and concerns of impending preeclampsia with severe features versus acute fatty liver versus other etiology. The patient this morning reports that she is doing well. She has been able to keep food and liquids down, has not vomited in the last 24 hours. She also denies any vaginal bleeding. She reports her pain is tolerable. OBJECTIVE: VITAL SIGNS: This morning, blood pressure is 111/52, heart rate of 85, respiratory rate of 16, temperature 98.6. GENERAL: She appears to be in no acute distress. She is alert, oriented, cooperative, and pleasant to interact with. HEAD: Normocephalic atraumatic. ABDOMEN: Soft and gravid. PELVIS: Cervical exam has been deferred at this time. heart tracing, her baseline is noted to be in the 130s with moderate long-term variability, positive 15 x 15 accelerations. Tocometer without contractions at that time. LABORATORY DATA: Lab work shows a decreasing trend in her LFTs, now down to AST 285 and ALT 356, both down from AST of 417, and ALT of 404. ASSESSMENT AND PLAN: The patient is a 34-year-old female with an intrauterine at 29 weeks and 6 days with downtrending LFTs and otherwise stable vital signs and an antepartum course. She is status post steroids for lung maturity and had been put on a course of magnesium for neuroprotection with concerns of imminent delivery. We have, however, been able to pass through that point and the patient remains and stable. We will continue close observation. Dr. Joy is the physician coming on duty today and will continue watching. Dr. Tate, the consulting physician also has seen her and recommends close monitoring of LFTs and INR with plans that if she has significant decline in her liver function or mental status, he would recommend delivery. Job ID: [id number]
[2020-03-21] MEDS: Ondansetron PF 4 MG/2 ML Vial IVP PRN (09:28)
--- NOTE | 2020-03-21 12:40 | PRG ---
DATE OF SERVICE: SUBJECTIVE: Ms. Koehler feels a bit better today. She did eat some eggs and guadarrama this morning. She took 3 protein shakes in yesterday. Her abdominal pain is somewhat better today. OBJECTIVE: HEENT: Her eyes have no scleral icterus. LUNGS: Clear to auscultation bilaterally. HEART: Regular rate and rhythm without murmur. ABDOMEN: Soft. Gravid uterus. She has minimal tenderness. Her bowel sounds are active. EXTREMITIES: No lower extremity edema. LABORATORY DATA: White blood cell count 14.1, hemoglobin 10.3, platelets 192. Bilirubin 0.2, AST 285, ALT 356, alkaline phosphatase 110, creatinine 0.54, albumin 3.1. IMPRESSION: Abnormal liver function test, but suspected acute fatty liver of . Her liver tests are actually improving and her synthetic function has remained normal. This does bring the diagnosis into question. Other causes of liver disease so far, workup has been negative. Her smooth muscle antibody is pending. Overall, she seems much better today. RECOMMENDATIONS: Continue to follow the trend of her liver tests and INR. Job ID: [id number]
[2020-03-21] MEDS: Promethazine HCl 12.5 MG in Sodium Chloride 0.9% 50 ML IVPB PRN (13:37)
[2020-03-21] MEDS: Cyclobenzaprine 10 MG TAB PO PRN ×2 (15:25→22:04)
[2020-03-21] MEDS: Zolpidem Tartrate 5 MG TAB PO SCH (21:00)
[2020-03-21] MEDS: Meperidine HCl/PF 25 MG/ML VIAL SLOW IVP PRN (22:09)
[2020-03-21 23:07] LABS: CMV DNA-PCR Test Negative (Negative)
[2020-03-22] MEDS: Lactated Ringer's 1,000 ML IV SCH ×2 (05:22→14:18)
[2020-03-22 07:07] LABS: #Basophils 0.1 thou/uL (0.0-0.2); #Eosinphils 0.2 thou/uL (0.0-0.7); #Lymphocytes 2.4 thou/uL (1.20-3.40); #Monocytes 0.9 thou/uL (0.11-0.59); #Neutrophils 10.7 thou/uL (1.40-6.50); %Basophils 0.4 % (0.0-1.0); %Eosinophils 1.2 % (0.0-10.0); %Lymphocytes 16.6 % (21.0-51.0); %Monocytes 6.3 % (0.0-10.0); %Neutrophils 75.5 % (42.0-75.0); Hemoglobin 10.1 g/dL (12.0-16.0); Mean Corpuscular HGB CONC 33.6 g/dL (32.0-36.0); Mean Corpuscular Hemoglobin 28.9 pg (27.0-31.0); Mean Corpuscular Volume 86.2 fL (78.0-98.0); Mean Platelet Volume 9.1 fL (7.4-10.4); Platelet Count 167 thou/uL (130-400); RBC Distribution Width 12.5 % (11.5-14.5); White Blood Cell (WBC) Count 14.2 thou/uL (4.8-10.8)
[2020-03-22 07:12] LABS: Prothrombin Time 13.2 sec (12.0-14.7)
[2020-03-22 07:26] LABS: ALT (SGPT) 327 U/L (8-55); AST (SGOT) 248 U/L (5-34); Alkaline Phosphatase 105 U/L (40-110); Anion Gap 14 mmol/L (10-20); BUN (Urea Nitrogen) 8 mg/dL (7.0-18.7); Bilirubin, Total 0.3 mg/dL (0.2-1.2); Calc. Creatinine Clearance 185 mL/min (70-130); Calcium 9.3 mg/dL (7.8-10.44); Carbon Dioxide 23 mmol/L (22-29); Chloride 104 mmol/L (98-107); Estimated GFR-MDRD Greater than 90; Globulin 3.4 g/dL (2.4-3.5); Glucose 106 mg/dL (70-105); Potassium 3.8 mmol/L (3.5-5.1); Protein, Total 6.4 g/dL (6.0-8.3); Sodium 137 mmol/L (136-145)
--- NOTE | 2020-03-22 07:49 | PDOC.BPN ---
- Brief Progress Note S: Patient feeling crampy but otherwise without complaints this morning. Denies VB, LOF, or decreased FM. Tolerating PO. O: AFVSS Gen - AAO, NAD Abd - gravid, NTTP NST - pending this morning Yesterday's reviewed and reactive. A/P: 34 y/o at 30w0d today. Labs improving with LFTs still trending down. Vitals and antepartum course stable. We will continue to monitor.
[2020-03-22] MEDS: Ondansetron PF 4 MG/2 ML Vial IVP PRN ×2 (08:29→15:09)
[2020-03-22] MEDS: Famotidine 40 MG/5 ML Oral Suspension PO SCH ×2 (09:43→21:42)
[2020-03-22] MEDS: Prenatal Vitamin 1 TAB PO SCH (09:43)
[2020-03-22] MEDS: Ferrous Sulfate 325 MG TAB PO SCH ×2 (09:43→18:58)
[2020-03-22] MEDS: Potassium Chloride 20 MEQ TAB PO SCH ×2 (09:43→18:58)
--- NOTE | 2020-03-22 15:07 | PRG ---
DATE OF SERVICE: 03/22/2020 SUBJECTIVE: Ms. Koehler appears more comfortable. She has less abdominal discomfort. She has been ambulating. She has normal bowel movements. PHYSICAL EXAMINATION: GENERAL: She is in no acute distress. Alert and oriented x3. LUNGS: Clear to auscultation bilaterally. HEART: Regular rate and rhythm without murmur. ABDOMEN: Soft. She has active bowel sounds. Gravid uterus. EXTREMITIES: No lower extremity edema. LABORATORY DATA: Hemoglobin 10.1, white blood cell count 14.2. INR 1.0, creatinine 0.53, AST 248, ALT 327, alkaline phosphatase 105, bilirubin 0.3, albumin 3.0. IMPRESSION: Abnormal liver function tests. Serology for common causes of liver disease are negative. Smooth muscle antibody is pending. Question of acute fatty liver of , however, her ongoing improvement brings this and makes this diagnosis uncertain. The synthetic function of her liver is good. RECOMMENDATIONS: 1. Continue to push oral protein supplements and diet as she tolerates. 2. We will continue to follow. Job ID: [id number]
[2020-03-22] MEDS: Cyclobenzaprine 10 MG TAB PO PRN ×2 (15:09→22:51)
--- NOTE | 2020-03-22 16:55 | RAD ---
EXAM: XR Abdomen 2 View DATE: 03/22/2020 3:52 PM INDICATION: Abdominal pain and 30 weeks COMPARISON: None. FINDING: There is the skeletal features of an intrauterine gestation present within the lower midlin e abdomen. The fetus appears in vertex presentation. There is a radiopaque density within the left upper quadrant of the abdomen likely reflecting a ingested medicinal tablet. Bowel gas pattern is adrienne bstructed. There is a mild amount retained stool within the colon. No acute osseous abnormality is evident. IMPRESSION:No acute abnormality. Intrauterine gestation.
[2020-03-22] MEDS: Calcium Carbonate 500 MG ChewTAB PO SCH ×2 (18:55→21:24)
[2020-03-22] MEDS: Docusate Calcium (SURFAK) 240 MG CAP PO SCH ×2 (18:55→21:25)
[2020-03-22] MEDS: metroNIDAZOLE 0.75% 70 GM TUBE VAG SCH (21:25)
[2020-03-23] MEDS: Lactated Ringer's 1,000 ML IV SCH ×3 (00:19→17:31)
[2020-03-23] MEDS: Promethazine HCl 25 MG/ML VIAL IM PRN (02:36)
[2020-03-23] MEDS: Promethazine HCl 12.5 MG in Sodium Chloride 0.9% 50 ML IVPB PRN ×2 (03:11→20:07)
[2020-03-23] MEDS: Cyclobenzaprine 10 MG TAB PO PRN ×2 (06:12→21:46)
[2020-03-23] MEDS: Butorphanol Tartrate 1 MG/ML VIAL SLOW IVP PRN (06:39)
[2020-03-23 08:49] LABS: ALT (SGPT) 383 U/L (8-55); AST (SGOT) 363 U/L (5-34); Albumin 3.2 g/dL (3.5-5.0); Alkaline Phosphatase 114 U/L (40-110); Bilirubin, Direct 0.3 mg/dL (0.1-0.3); Bilirubin, Total 0.3 mg/dL (0.2-1.2); Protein, Total 7.6 g/dL (6.0-8.3)
[2020-03-23] MEDS: Prenatal Vitamin 1 TAB PO SCH (08:52)
[2020-03-23] MEDS: Docusate Calcium (SURFAK) 240 MG CAP PO SCH ×2 (08:52→20:41)
[2020-03-23] MEDS: Calcium Carbonate 500 MG ChewTAB PO SCH ×2 (08:53→20:41)
[2020-03-23] MEDS: Ferrous Sulfate 325 MG TAB PO SCH ×2 (08:53→17:29)
[2020-03-23] MEDS: Famotidine 20 MG TAB PO SCH ×2 (09:35→20:41)
[2020-03-23] MEDS: Potassium Chloride 20 MEQ TAB PO SCH ×2 (09:35→17:29)
--- NOTE | 2020-03-23 12:12 | PRG ---
DATE OF SERVICE: 03/23/2020 SUBJECTIVE: Ms. Koehler is tolerating her diet pretty well. She has been keeping down protein well over the last few days. She has been having normal bowel movements. Her abdominal pain is stable. OBJECTIVE: GENERAL: She is in no acute distress. Alert and oriented x3. LUNGS: Clear to auscultation bilaterally. HEART: Regular rate and rhythm without murmur. ABDOMEN: Soft. Gravid uterus. Mild tenderness in upper abdomen without guarding. Bowel sounds are present. EXTREMITIES: No lower extremity edema. LABORATORY DATA: White blood cell count 14.2, hemoglobin 10.1, and platelets 167. Creatinine 0.53, bilirubin 0.3, AST 363, ALT 383, alkaline phosphatase 114, ammonia 40, and albumin 3.2. IMPRESSION: Abnormal liver tests. Ultrasound showed fatty liver. This seems less likely to be acute fatty liver of as her clinical course so far has been mild. Her liver synthetic function continues to do well. Her mental status is normal. Her bilirubin is normal. Her INR has been normal. Her albumin is improving slightly today. RECOMMENDATIONS: Recheck her liver test tomorrow. If they remain stable overall with only mild fluctuation, then she could likely discharge from a liver standpoint to have liver tests followed closely as an outpatient. I discussed this with her traffic safety administrator, Dr. Amin. Job ID: [id number]
[2020-03-23] MEDS: Ondansetron PF 4 MG/2 ML Vial IVP PRN (13:50)
[2020-03-23 15:37] LABS: Alpha-1-Antitrypsin 258 mg/dL (100-188)
[2020-03-23] MEDS: metroNIDAZOLE 0.75% 70 GM TUBE VAG SCH (20:41)
[2020-03-23] MEDS: Zolpidem Tartrate 5 MG TAB PO SCH (20:41)
--- NOTE | 2020-03-23 21:52 | PDOC.LDPN ---
Labor & Delivery Progress Note - Subjective Subjective: comfortable - Objective Vital signs reviewed and normal: yes General: NAD Uterine fundus: non tender - Assessment (1) Short cervix affecting Code(s): O26.879 - CERVICAL SHORTENING, UNSPECIFIED TRIMESTER Current Visit: Yes Status: Acute (2) Elevated LFTs Code(s): R79.89 - OTHER SPECIFIED ABNORMAL FINDINGS OF BLOOD CHEMISTRY Current Visit: Yes Status: Acute (3) Nausea and vomiting during Code(s): O21.9 - VOMITING OF , UNSPECIFIED Current Visit: Yes Status: Acute -: 30w2d IUP Had some ctx earlier in day that resolved with stadol No vomiting, kaylie po, improved overall Negative abd xray LFT trended up today, no new symptoms Will await until LFT trending down then plan DC home with close follow up as outpt. NST Cat 1
[2020-03-23] MEDS: Meperidine HCl/PF 25 MG/ML VIAL SLOW IVP PRN (21:57)
[2020-03-24] MEDS: Lactated Ringer's 1,000 ML IV SCH (01:45)
[2020-03-24] MEDS: Ondansetron PF 4 MG/2 ML Vial IVP PRN ×2 (03:44→11:27)
[2020-03-24 06:53] LABS: Prothrombin Time 12.9 sec (12.0-14.7)
[2020-03-24 07:05] LABS: ALT (SGPT) 378 U/L (8-55); AST (SGOT) 344 U/L (5-34); Albumin 3.1 g/dL (3.5-5.0); Alkaline Phosphatase 114 U/L (40-110); Anion Gap 12 mmol/L (10-20); BUN (Urea Nitrogen) 8 mg/dL (7.0-18.7); Bilirubin, Total 0.4 mg/dL (0.2-1.2); Calc. Creatinine Clearance 188 mL/min (70-130); Calcium 9.1 mg/dL (7.8-10.44); Carbon Dioxide 21 mmol/L (22-29); Chloride 105 mmol/L (98-107); Estimated GFR-MDRD Greater than 90; Globulin 3.5 g/dL (2.4-3.5); Glucose 136 mg/dL (70-105); Potassium 3.9 mmol/L (3.5-5.1); Protein, Total 6.6 g/dL (6.0-8.3); Sodium 134 mmol/L (136-145)
[2020-03-24 07:43] LABS: #Eosinphils 0.2 thou/uL (0.0-0.7); #Lymphocytes 2.6 thou/uL (1.20-3.40); #Monocytes 1.2 thou/uL (0.11-0.59); %Basophils 0.2 % (0.0-1.0); %Eosinophils 1.5 % (0.0-10.0); %Lymphocytes 16.2 % (21.0-51.0); %Monocytes 7.3 % (0.0-10.0); %Neutrophils 74.8 % (42.0-75.0); Hemoglobin 10.9 g/dL (12.0-16.0); Mean Corpuscular HGB CONC 32.2 g/dL (32.0-36.0); Mean Corpuscular Hemoglobin 27.8 pg (27.0-31.0); Mean Corpuscular Volume 86.3 fL (78.0-98.0); Mean Platelet Volume 9.3 fL (7.4-10.4); Platelet Count 149 thou/uL (130-400); RBC Distribution Width 12.8 % (11.5-14.5); Red Blood Cell (RBC) Count 3.93 mill/uL (4.20-5.40); White Blood Cell (WBC) Count 16.1 thou/uL (4.8-10.8)
--- NOTE | 2020-03-24 08:48 | PDOC.LDPN ---
Labor & Delivery Progress Note - Subjective Subjective: comfortable, no concerns - Objective Vital signs reviewed and normal: yes General: NAD Uterine fundus: non tender - Assessment (1) Short cervix affecting Code(s): O26.879 - CERVICAL SHORTENING, UNSPECIFIED TRIMESTER Current Visit: Yes Status: Acute (2) Elevated LFTs Code(s): R79.89 - OTHER SPECIFIED ABNORMAL FINDINGS OF BLOOD CHEMISTRY Current Visit: Yes Status: Acute (3) Nausea and vomiting during Code(s): O21.9 - VOMITING OF , UNSPECIFIED Current Visit: Yes Status: Acute -: 30w2d with elevated LFTs LFTs are stable, trended slightly down today. No e/o biliary obstruction or hepatic mass. Delilah reg diet with supplements. No N/V. No ctx on monitor NST Cat 1. BPP today No pain today s/p BMZ PICC line home care teaching today, pt has difficult access. Plan DC home with twice weekly labs and testing.
[2020-03-24] MEDS: Ferrous Sulfate 325 MG TAB PO SCH (09:06)
[2020-03-24] MEDS: Prenatal Vitamin 1 TAB PO SCH (09:06)
[2020-03-24] MEDS: Famotidine 20 MG TAB PO SCH (09:07)
[2020-03-24] MEDS: Calcium Carbonate 500 MG ChewTAB PO SCH (09:07)
[2020-03-24] MEDS: Docusate Calcium (SURFAK) 240 MG CAP PO SCH (09:07)
[2020-03-24] MEDS: Potassium Chloride 20 MEQ TAB PO SCH (09:23)
--- NOTE | 2020-03-24 10:13 | ULT ---
LIMITED OBSTETRICAL ULTRASOUND FOR BIOPHYSICAL PROFILE INDICATION: Elevated LFTs and 30 week TECHNIQUE: Grayscale, M-mode Doppler, color Doppler and spectral Doppler images were obtained. Biophy sical profile was submitted by the irrigation service technician. Imaging is focused on the clinical indication. COMPARISON: March 16, 2020 GESTATION: Number of gestations: Single. Presentation: Vertex. heart rate: 149 bpm. Placental location: Right-sided Previa: No evidence for previa. Cervical length: Not measured PHIL: 14.7 cm. Biophysical profile: tone: 2 out of 2. breathin out of 2 movements: 2 out of 2 Amniotic fluid level: 2 out of 2 IMPRESSION: 1. Biophysical profile of 8 out of 8
== END 2020-03-24 14:56 | disposition home health service (06) | DRG 832 ==
LOC: L&D/OP 11:06 → L&D 17:29 → 3SW 03-18 09:46 → L&D 03-18 17:26
PROVIDERS: ADMIT Student in an Organized Health Care Education/Training Program; ATTEND Student in an Organized Health Care Education/Training Program
PROC: 02HV33Z Insertion of Infusion Device into Superior Vena Cava, Percutaneous Approach (ICD-10-PCS; principal; 2020-03-20)
PROC: B548ZZA Ultrasonography of Superior Vena Cava, Guidance (ICD-10-PCS; 2020-03-20)
DX: O99.613 Diseases of the digestive system complicating pregnancy, third trimester (principal); O26.873 Cervical shortening, third trimester; R11.2 Nausea with vomiting, unspecified; Z3A.29 29 weeks gestation of pregnancy; K76.0 Fatty (change of) liver, not elsewhere classified; Z91.040 Latex allergy status
CPT/HCPCS: 36415; 36416; 36569; 36600; 59025; 74019; 76705; 76815; 76819; 80053; 80074; 80076; 80307; 81001; 82103; 82104; 82140; 82150; 82239; 82390; 82570; 82731; 83516; 83540; 83550; 83615; 83690; 84112; 84156; 84550; 85025; 85027; 85362; 85384; 85610; 85730; 86038; 86225; 86644; 86645; 86664; 86665; 86780; 86850; 86900; 86901; 87086; 87340; 87480; 87497; 87510; 87529; 87635; 87660; 87798; 99282; 99285; C1751; J0595; J0702; J1644; J2001; J2175; J2405; J2550; J3475; S0028; U0003

== ENCOUNTER 2020-03-28 11:55 | Inpatient (IN) | payer OTHER ==
--- NOTE | 2020-03-28 12:10 | PDOC.LDHP ---
Labor and Delivery H&P Chief complaint: other (nausea/vomiting) HPI: 34yo @ 30.6 presents for n/v, pruritus, and abd pain. She was recently discharged on 03/24 for an admission for similar sxs with associated contractions. At that time, LFTs were elevated and trended, GI consulted, and cervical US demonstrated L of 1.2 -> 3.4cm and U-shaped, thus patient was given Mag and steroids. Patients sxs improved and she was discharged with close follow up. Abd US demonstrated fatty liver. Since discharge, patient states she has had consistent nausea and non-bloody, non-billious vomiting. Unable to tolerate any PO intake. No associated fever/ chills, diarrhea, GARRISON. Does endorse a diffuse abd pain. She states she has intermittent ctx. No vaginal bleeding or LOF. Vaginal discharge similar to previous admission. Endorses intermittent blurred vision, double vision, and floaters, but currently no sxs. No SOB. New sx of pruritus, diffuse, over past 24 hours. Current gestational age (weeks): 30 (30.6) Due date: 05/31/20 Grav: 2 Para: 1 (0101) OB History Details: complicated by elevated LFTs, workup by GI/OB end of February negative for infectious, autoimmune causes. Fatty liver on US. Rec close f/u. Previous resulted in primary c/s for HELLP. Current complications: other (elevated LFTs, N/V) Abnormal US findings: Yes (03/16 cervix 1.2->3.4cm, U-shaped. 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 Current medications: pre- vitamins, other (Vitamin D, 81mg ASA, Bonjesta, Zofran, Phenergan, DHEA, CoQ10) Previous surgical history: low tranverse CS Allergies/Adverse Reactions: Allergies Allergy/AdvReac Type Severity Reaction Status Date / Time latex Allergy Intermediate Rash Verified 03/28/20 12:42 metoclopramide [From Reglan] Allergy Unknown Verified 03/28/20 12:42 Social history: none - Physical Exam Abnormal vital signs: SBP 146 General: NAD, resting, breathing through contractions Heart: RRR Lungs: nonlabored breathing Abdomen: other (diffusely TTP, no rebound or guarding, negative amanda's) Extremeties: normal range of motion FHT: category 1 (accels, no deccels, baseline 140), variability present ( moderate) [place] contractions every: none - Plan -: 34yo @ 30.6wk with h/o for HELLP, current complicated by elevated LFTs and n/v presents for worsening n/v and pruritus. # SIUP - 30.6wk - h/o delivery @ 33wk for HELLP via pLTCS - US on 03/16 with CL 1.2 -> 3.4cm, U-shaped, positive FFN - Discharged 03/24 - admission with US demonstrated fatty liver, Hep A,B,E,C negative. RPR, HSV, COVID, EMILIANO negative. CMV and EBV IgG positive. - S/p Steroids 03/16-03/17 and Mag on 03/18 - Recent labs: AST/ALT 414/503 with Tbili 0.5, Hb 10.7, Plt 158 on 03/25 - FHT with baseline 140, accels, no deccels, no ctx. Will monitor - 2L LR and Zofran prn - CBC, CMP, bile acids, Urine Pr/Cr - Monitor BP - concern for progressive to PreE vs HELLP Addendum - Attending - Attending Attestation Date/Time: 03/28/201956 I personally evaluated the patient and discussed the management with Dr. Butcher. I agree with the History, Examination, Assessment and Plan documented above. Will follow labs and update Dr. Amin if disease progression is noted.
[2020-03-28] MEDS ORDERED: hydrALAZINE 20 MG/ML VIAL SLOW IVP PRN ×2 (12:28→15:51)
[2020-03-28] MEDS ORDERED: Ondansetron PF 4 MG/2 ML Vial IVP PRN (12:32)
[2020-03-28 12:42] VITALS: BMI 35.7
[2020-03-28] MEDS: Lactated Ringer's 1,000 ML IV SCH ×2 (13:07→23:10)
[2020-03-28 13:10] LABS: #Basophils 0.1 thou/uL (0.0-0.2); #Eosinphils 0.1 thou/uL (0.0-0.7); #Lymphocytes 2.2 thou/uL (1.20-3.40); #Neutrophils 11.4 thou/uL (1.40-6.50); %Basophils 0.9 % (0.0-1.0); %Monocytes 6.5 % (0.0-10.0); %Neutrophils 76.6 % (42.0-75.0); Hemoglobin 11.3 g/dL (12.0-16.0); Mean Corpuscular HGB CONC 32.5 g/dL (32.0-36.0); Mean Corpuscular Hemoglobin 27.9 pg (27.0-31.0); Mean Corpuscular Volume 85.9 fL (78.0-98.0); Mean Platelet Volume 10.3 fL (7.4-10.4); Platelet Count 163 thou/uL (130-400); RBC Distribution Width 12.9 % (11.5-14.5); Red Blood Cell (RBC) Count 4.06 mill/uL (4.20-5.40); White Blood Cell (WBC) Count 14.9 thou/uL (4.8-10.8)
[2020-03-28 13:30] LABS: ALT (SGPT) 429 U/L (8-55); AST (SGOT) 329 U/L (5-34); Albumin 3.5 g/dL (3.5-5.0); Alkaline Phosphatase 164 U/L (40-110); Anion Gap 16 mmol/L (10-20); BUN (Urea Nitrogen) 7 mg/dL (7.0-18.7); Bilirubin, Total 0.7 mg/dL (0.2-1.2); Calc. Creatinine Clearance 163 mL/min (70-130); Calcium 9.5 mg/dL (7.8-10.44); Carbon Dioxide 20 mmol/L (22-29); Chloride 103 mmol/L (98-107); Estimated GFR-MDRD Greater than 90; Globulin 4.1 g/dL (2.4-3.5); Glucose 97 mg/dL (70-105); Potassium 3.8 mmol/L (3.5-5.1); Protein, Total 7.6 g/dL (6.0-8.3); Sodium 135 mmol/L (136-145)
[2020-03-28] MEDS ORDERED: diphenhydrAMINE 50 MG/ML VIAL IVP SCH (14:45)
[2020-03-28] MEDS ORDERED: Promethazine HCl 25 MG/ML VIAL IM PRN (15:51)
[2020-03-28] MEDS ORDERED: Acetaminophen 500 MG TAB PO PRN (15:51)
--- NOTE | 2020-03-28 15:56 | PDOC.BPN ---
- Brief Progress Note S: Patient doing well, less nauseated with zofran and feeling slight better after IVF. No contractions, GARRISON, vision changes. Good FM. O: BP x1 >140/90, all rest have been WNL. Reassuring FHT with accels, moderate variability, and no contractions AST/ALT 329/429, Tbili 0.7, Plt 163, Hb 11.3 Urine Pr/Cr 0.315 up from 0.25 on previous admission A/P: 34yo @ 30.6wk with h/o for HELLP, current complicated by elevated LFTs and n/v presented for worsening n/v and pruritus. # SIUP - 30.6wk - h/o delivery @ 33wk for HELLP via pLTCS - US on 03/16 with CL 1.2 -> 3.4cm, U-shaped, positive FFN - Discharged 03/24 - admission with US demonstrated fatty liver, Hep A,B,E,C negative. RPR, HSV, COVID, EMILIANO negative. CMV and EBV IgG positive. - S/p Steroids 03/16-03/17 and Mag on 03/18 - Recent labs: AST/ALT 414/503 with Tbili 0.5, Hb 10.7, Plt 158 on 03/25 - FHT with baseline 140, accels, no deccels, no ctx. Cont to monitor - AST/ALT 329/429, Tbili 0.7, Plt 163, Hb 11.3 - Urine Pr/Cr 0.315 up from 0.25 on previous admission - 1 elevated BP since presentation, cont to Monitor BP - spoke with Dr. Amin, recommend observation with 24hr protein and BP monitoring - bile acids pending PCP: Dr. Amin Dispo: Will admit for obs, collect 24hr protein and monitor BP, concern for preE.
[2020-03-28] MEDS: Ferrous Sulfate 325 MG TAB PO SCH (18:01)
[2020-03-28] MEDS ORDERED: Aspirin 81 mg Enteric Coated Tablet PO SCH (23:30)
[2020-03-28] MEDS ORDERED: Cyclobenzaprine 10 MG TAB PO SCH (23:45)
[2020-03-29] MEDS: diphenhydrAMINE 50 MG/ML VIAL IVP PRN ×3 (03:05→21:31)
[2020-03-29 06:13] LABS: Hemoglobin 10.7 g/dL (12.0-16.0); Mean Corpuscular HGB CONC 33.6 g/dL (32.0-36.0); Mean Corpuscular Hemoglobin 29.1 pg (27.0-31.0); Mean Corpuscular Volume 86.5 fL (78.0-98.0); Mean Platelet Volume 10.4 fL (7.4-10.4); Platelet Count 150 thou/uL (130-400); RBC Distribution Width 12.8 % (11.5-14.5); Red Blood Cell (RBC) Count 3.66 mill/uL (4.20-5.40); White Blood Cell (WBC) Count 11.1 thou/uL (4.8-10.8)
--- NOTE | 2020-03-29 06:30 | PDOC.OBAPN ---
FMR OB AP PN: Sub - Interval History Hospital Day: 1 Chief Complaint: n/v Indentification: 34yo @ 31.0wk Interval History: No concerns, nausea improved. Tolerating PO well. No fever/ chills, ctx, LOF FMR OB AP PN: Obj - Maternal Vital signs: BP: max 145/65 RR: 12 Wt: 77kg FMR OB AP PN: Exam - Physical Exam General: NAD, awake, alert and oriented HEENT: PERRLA, EOMI, MMM Neck: supple, trachea midline Heart: RRR, normal S1/S2, no murmurs/rubs/gallops, pulses present, no edema General: CTAB, no respiratory distress, good air movement, no rales/rhonchi, no wheezing Abdomen: soft, gravid, non-tender, bowel sound present Neurological: no focal deficit Psychiatric: intact recent and remote memory, normal mood and affect FMR OB AP PN: Data - Labs Lab results: Laboratory Results - last 24 hr 03/28/20 03/28/20 03/28/20 12:59 12:59 14:30 WBC 14.9 H RBC 4.06 L Hgb 11.3 L Hct 34.9 L MCV 85.9 MCH 27.9 MCHC 32.5 RDW 12.9 Plt Count 163 MPV 10.3 Neutrophils % 76.6 H Lymphocytes % 15.0 L Monocytes % 6.5 Eosinophils % 1.0 Basophils % 0.9 Neutrophils # 11.4 H Lymphocytes # 2.2 Monocytes # 1.0 H Eosinophils # 0.1 Basophils # 0.1 Sodium 135 L Potassium 3.8 Chloride 103 Carbon Dioxide 20 L Anion Gap 16 BUN 7 Creatinine 0.59 L Estimated GFR (MDRD) Greater than 90 Glucose 97 Calcium 9.5 Total Bilirubin 0.7 AST 329 H ALT 429 H Alkaline Phosphatase 164 H Serum Total Protein 7.6 Albumin 3.5 Globulin 4.1 H Albumin/Globulin Ratio 0.9 L U Random Total Protein 60 H Urine Creatinine 03/28/20 03/29/20 14:30 06:01 WBC 11.1 H RBC 3.66 L Hgb 10.7 L Hct 31.7 L MCV 86.5 MCH 29.1 MCHC 33.6 RDW 12.8 Plt Count 150 MPV 10.4 Neutrophils % Lymphocytes % Monocytes % Eosinophils % Basophils % Neutrophils # Lymphocytes # Monocytes # Eosinophils # Basophils # Sodium Potassium Chloride Carbon Dioxide Anion Gap BUN Creatinine Estimated GFR (MDRD) Glucose Calcium Total Bilirubin AST ALT Alkaline Phosphatase Serum Total Protein Albumin Globulin Albumin/Globulin Ratio U Random Total Protein Urine Creatinine 190.53 H FMR OB AP PN: A/P - Problem List (1) Current Visit: Yes Status: Acute Qualifiers: Weeks of gestation: 31 weeks Qualified Code(s): Z3A.31 - 31 weeks gestation of (2) Elevated LFTs Current Visit: Yes Status: Acute Code(s): R79.89 - OTHER SPECIFIED ABNORMAL FINDINGS OF BLOOD CHEMISTRY (3) Nausea and vomiting during Current Visit: Yes Status: Acute Code(s): O21.9 - VOMITING OF , UNSPECIFIED Disposition: 34yo @ 31.0wk with h/o for HELLP, current complicated by elevated LFTs and n/v presented for worsening n/v and pruritus. # SIUP - 31.0wk - h/o delivery @ 33wk for HELLP via pLTCS - US on 03/16 with CL 1.2 -> 3.4cm, U-shaped, positive FFN - Discharged 03/24 - admission with US demonstrated fatty liver, Hep A,B,E,C negative. RPR, HSV, COVID, EMILIANO negative. CMV and EBV IgG positive. - S/p Steroids 03/16-03/17 and Mag on 03/18 - Recent labs: AST/ALT 414/503 with Tbili 0.5, Hb 10.7, Plt 158 on 03/25 - FHT with baseline 140, accels, no deccels, no ctx. qshift NST - AST/ALT 329/429, Tbili 0.7, Plt 163, Hb 11.3 - Urine Pr/Cr 0.315 up from 0.25 on previous admission - 2 elevated BP since presentation, cont to Monitor BP - Cont 24 hour protein collection and BP monitoring - bile acids pending - s/p IVF, zofran and benadryl prn - AM labs pending - encourage PO intake, ambulation PCP: Dr. Amin Dispo: Cont to collect 24hr protein and monitor BP, concern for preE. Discussion: Date/Time: 03/29/20621 This H&P was discussed with Dr. Joy who agrees with the above documentation and plan. Addendum - Attending - Attending Attestation Date/Time: 03/29/20704 I personally evaluated the patient and discussed the management with Dr. Butcher. I agree with the History, Examination, Assessment and Plan documented above. Patient resting comfortably. Has tolerated regular diet overnight without difficulties. Continue collecting 24 hour urine. LFTs improving. Continue to monitor.
[2020-03-29 06:33] LABS: ALT (SGPT) 393 U/L (8-55); AST (SGOT) 328 U/L (5-34); Alkaline Phosphatase 144 U/L (40-110); Anion Gap 12 mmol/L (10-20); BUN (Urea Nitrogen) 4 mg/dL (7.0-18.7); Bilirubin, Total 0.5 mg/dL (0.2-1.2); Calc. Creatinine Clearance 169 mL/min (70-130); Calcium 8.1 mg/dL (7.8-10.44); Carbon Dioxide 21 mmol/L (22-29); Chloride 106 mmol/L (98-107); Estimated GFR-MDRD Greater than 90; Globulin 3.6 g/dL (2.4-3.5); Glucose 160 mg/dL (70-105); Potassium 3.8 mmol/L (3.5-5.1); Protein, Total 6.6 g/dL (6.0-8.3); Sodium 135 mmol/L (136-145)
[2020-03-29] MEDS: Prenatal Vitamin 1 TAB PO SCH (08:44)
[2020-03-29] MEDS: Ferrous Sulfate 325 MG TAB PO SCH ×2 (08:44→17:38)
[2020-03-29] MEDS ORDERED: Aspirin 81 mg Enteric Coated Tablet PO SCH (09:00)
[2020-03-29] MEDS ORDERED: Prasterone (Dhea) [Dhea] 50 MG PO SCH (09:00)
[2020-03-29] MEDS: Cholecalciferol 1,000 UNITS (25 MCG) TAB PO SCH (09:35)
[2020-03-29] MEDS: Ondansetron PF 4 MG/2 ML Vial IVP PRN (10:18)
[2020-03-29] MEDS ORDERED: Promethazine HCl 25 MG/ML VIAL IVPB PRN (11:50)
[2020-03-29] MEDS: Promethazine HCl 12.5 MG in Sodium Chloride 0.9% 50 ML IVPB PRN (17:37)
[2020-03-29 19:17] LABS: Urine Total Volume 2025 mL (600-1600)
[2020-03-29 19:38] LABS: Protein - 24 Hr 304 mg/24 hr (Less than 300); Protein, Urine 15 mg/dL (1-14)
[2020-03-29] MEDS: Aspirin 81 mg Enteric Coated Tablet PO SCH (21:12)
[2020-03-29] MEDS: Cyclobenzaprine 10 MG TAB PO PRN (21:26)
[2020-03-30] MEDS: Promethazine HCl 12.5 MG in Sodium Chloride 0.9% 50 ML IVPB PRN ×3 (00:50→23:35)
[2020-03-30 08:04] LABS: #Basophils 0.1 thou/uL (0.0-0.2); #Eosinphils 0.1 thou/uL (0.0-0.7); #Lymphocytes 2.3 thou/uL (1.20-3.40); #Monocytes 1.1 thou/uL (0.11-0.59); #Neutrophils 8.9 thou/uL (1.40-6.50); %Basophils 0.7 % (0.0-1.0); %Eosinophils 1.2 % (0.0-10.0); %Lymphocytes 18.1 % (21.0-51.0); %Monocytes 8.6 % (0.0-10.0); %Neutrophils 71.5 % (42.0-75.0); Mean Corpuscular HGB CONC 32.4 g/dL (32.0-36.0); Mean Corpuscular Hemoglobin 28.5 pg (27.0-31.0); Mean Platelet Volume 10.3 fL (7.4-10.4); Platelet Count 152 thou/uL (130-400); Red Blood Cell (RBC) Count 3.84 mill/uL (4.20-5.40); White Blood Cell (WBC) Count 12.5 thou/uL (4.8-10.8)
[2020-03-30 08:24] LABS: ALT (SGPT) 320 U/L (8-55); AST (SGOT) 213 U/L (5-34); Albumin 3.1 g/dL (3.5-5.0); Alkaline Phosphatase 147 U/L (40-110); Anion Gap 11 mmol/L (10-20); BUN (Urea Nitrogen) Less than 4 mg/dL (7.0-18.7); Bilirubin, Total 0.4 mg/dL (0.2-1.2); Calc. Creatinine Clearance 166 mL/min (70-130); Calcium 8.4 mg/dL (7.8-10.44); Carbon Dioxide 23 mmol/L (22-29); Chloride 106 mmol/L (98-107); Estimated GFR-MDRD Greater than 90; Globulin 3.6 g/dL (2.4-3.5); Glucose 123 mg/dL (70-105); Protein, Total 6.7 g/dL (6.0-8.3); Sodium 136 mmol/L (136-145)
[2020-03-30] MEDS: Ferrous Sulfate 325 MG TAB PO SCH ×2 (08:55→20:22)
[2020-03-30] MEDS: Prenatal Vitamin 1 TAB PO SCH (08:55)
[2020-03-30] MEDS: Cholecalciferol 1,000 UNITS (25 MCG) TAB PO SCH (08:55)
[2020-03-30] MEDS: diphenhydrAMINE 50 MG/ML VIAL IVP PRN ×2 (09:14→21:35)
[2020-03-30] MEDS: Ondansetron PF 4 MG/2 ML Vial IVP PRN (11:39)
--- NOTE | 2020-03-30 13:07 | ULT ---
ULTRASOUND OBSTETRICAL LIMITED: DATE: 03/30/2020 HISTORY: 34-year-old female. Evaluate growth. FINDINGS: number: lopez lie: Vertex Maternal cervix: Completely obscured Placenta: Right lateral. No placenta previa. Amniotic fluid volume: PHIL = 15cm heart rate: 152 bpm anatomy not evaluated. biometry: Biparietal diameter (BPD): 8.0 cm 32 w 1 d Head circumference (HC): 29.1 cm 32 w 0 d Abdominal circumference (AC): 30.1 cm 34 w 0 d Femur length (FL): 6.4 cm 33 w 1 d Average ultrasound age (AUA): 32 w 6 d Estimated date of delivery (ANISH): 05/19/2020 Estimated weight (EFW): 2186 g +/- 324 g IMPRESSION: 1) Live 3rd trimester intrauterine gestation. 2) Estimated gestational age of 32 weeks, 6 days 3) cephalic lie.
--- NOTE | 2020-03-30 13:09 | ULT ---
ULTRASOUND BIOPHYSICAL PROFILE: DATE: 03/30/2020 HISTORY: 34-year-old female in third trimester of with nausea, vomiting, and elevated liver enzymes. FINDINGS: breathin tone: 2 movement: 2 Amniotic fluid volume: 2 IMPRESSION: Normal biophysical profile score of 8 out of 8, excluding the nonstress test.
--- NOTE | 2020-03-30 13:33 | PDOC.LDPN ---
Labor & Delivery Progress Note - Subjective Subjective: comfortable - Objective Vital signs reviewed and normal: yes General: NAD Uterine fundus: non tender FHT: category 1 [place] contractions every: none -: HD #3 admitted with N/V, elevated LFTs N/V resolved with IVF and antiemetics. VSSAF, mild range x 1 143/71 on HD1, no s/sx PIH. Elevated LFT- fatty liver on sono, neg work up as to etiology. Bile acids pending with new complaint of itching. 1w ago bile acids were normal. Despite significant elevation the levels are not trending up which is not c/w HELLP, severe PIH or AFLP. PICC line in place- case management to set up home care for PICC line BPP today. s/p BMZ Plan DC home once case mgmt set up. Pt has recurrent admissions for N/V and needs home care for IVF to prevent readmissions and risks for other morbidity. Will have case mgmt set this up prior to DC.
[2020-03-30] MEDS: Cyclobenzaprine 10 MG TAB PO PRN (15:44)
[2020-03-30] MEDS: Aspirin 81 mg Enteric Coated Tablet PO SCH (21:10)
[2020-03-31] MEDS: Ondansetron PF 4 MG/2 ML Vial IVP PRN (04:44)
[2020-03-31 08:17] LABS: #Basophils 0.1 thou/uL (0.0-0.2); #Eosinphils 0.2 thou/uL (0.0-0.7); #Lymphocytes 2.2 thou/uL (1.20-3.40); #Neutrophils 9.9 thou/uL (1.40-6.50); %Basophils 0.9 % (0.0-1.0); %Eosinophils 1.3 % (0.0-10.0); %Lymphocytes 16.2 % (21.0-51.0); %Monocytes 7.2 % (0.0-10.0); %Neutrophils 74.5 % (42.0-75.0); Mean Corpuscular HGB CONC 33.3 g/dL (32.0-36.0); Mean Corpuscular Hemoglobin 29.2 pg (27.0-31.0); Mean Corpuscular Volume 87.9 fL (78.0-98.0); Mean Platelet Volume 9.9 fL (7.4-10.4); Platelet Count 154 thou/uL (130-400); Red Blood Cell (RBC) Count 3.76 mill/uL (4.20-5.40); White Blood Cell (WBC) Count 13.3 thou/uL (4.8-10.8)
[2020-03-31] MEDS: Prenatal Vitamin 1 TAB PO SCH (08:27)
[2020-03-31] MEDS: Ferrous Sulfate 325 MG TAB PO SCH ×2 (08:27→18:20)
[2020-03-31] MEDS: Cholecalciferol 1,000 UNITS (25 MCG) TAB PO SCH (08:28)
[2020-03-31 08:37] LABS: ALT (SGPT) 237 U/L (8-55); AST (SGOT) 155 U/L (5-34); Alkaline Phosphatase 149 U/L (40-110); Anion Gap 15 mmol/L (10-20); BUN (Urea Nitrogen) 5 mg/dL (7.0-18.7); Bilirubin, Total 0.4 mg/dL (0.2-1.2); Calc. Creatinine Clearance 169 mL/min (70-130); Calcium 9.1 mg/dL (7.8-10.44); Carbon Dioxide 21 mmol/L (22-29); Chloride 105 mmol/L (98-107); Estimated GFR-MDRD Greater than 90; Globulin 3.4 g/dL (2.4-3.5); Glucose 89 mg/dL (70-105); Potassium 3.8 mmol/L (3.5-5.1); Protein, Total 6.4 g/dL (6.0-8.3); Sodium 137 mmol/L (136-145)
[2020-03-31] MEDS: Betamet Acet/Betamet Na Ph 30 MG/5 ML VIAL IM SCH (09:55)
[2020-03-31 11:10] LABS: Creatinine, Urine 54.56 mg/dL (47-110)
[2020-03-31] MEDS: Promethazine HCl 12.5 MG in Sodium Chloride 0.9% 50 ML IVPB PRN ×2 (15:47→22:47)
--- NOTE | 2020-03-31 20:11 | PDOC.LDPN ---
Labor & Delivery Progress Note - Subjective Subjective: comfortable - Objective Vital signs reviewed and normal: yes General: NAD Uterine fundus: non tender FHT: category 1 [place] contractions every: none -: HD#4 admitted with N/V and elevated LFT, IUP at 31w3d VSSAF GI- kaylie po, emesis x 1 yesterday reported by patient. Cont prn antiemetics. Plan home health for IVF through PICC line since pt has recurrent admissions for hyperemesis. LFT trended down again today. Bile acids pending. Itching stable, benadryl helping. Low suspicion for PIH, has had 2 borderline mild range BP 140/70 since admit, 24hr urine 300mg (also borderline) and stable LFT over last 3 weeks (not c/w PIH, always progressive) s/p GI consult with JAKUB joshua that showed fatty liver. Clinical picture not c/w AFLP. Cont twice weekly blood draws for LFT monitoring. Rescue course AVSI, FHT Cat 1, EFW 2186gm, ceph, PHIL 15cm, BPP 05/02 Case mgmt for home health Plan DC tomorrow once home health set up.
[2020-03-31] MEDS ORDERED: Lactated Ringer's 1,000 ML IV SCH (20:30)
[2020-03-31] MEDS: Aspirin 81 mg Enteric Coated Tablet PO SCH (21:03)
[2020-03-31] MEDS: diphenhydrAMINE 50 MG/ML VIAL IVP PRN (22:19)
[2020-04-01 08:36] LABS: #Basophils 0.1 thou/uL (0.0-0.2); #Eosinphils 0.1 thou/uL (0.0-0.7); #Lymphocytes 2.3 thou/uL (1.20-3.40); #Monocytes 0.8 thou/uL (0.11-0.59); #Neutrophils 10.6 thou/uL (1.40-6.50); %Basophils 0.6 % (0.0-1.0); %Eosinophils 0.6 % (0.0-10.0); %Lymphocytes 16.5 % (21.0-51.0); %Monocytes 5.9 % (0.0-10.0); %Neutrophils 76.5 % (42.0-75.0); Mean Corpuscular HGB CONC 33.9 g/dL (32.0-36.0); Mean Corpuscular Hemoglobin 29.5 pg (27.0-31.0); Mean Corpuscular Volume 87.1 fL (78.0-98.0); Mean Platelet Volume 10.2 fL (7.4-10.4); Platelet Count 158 thou/uL (130-400); Red Blood Cell (RBC) Count 3.71 mill/uL (4.20-5.40); White Blood Cell (WBC) Count 13.8 thou/uL (4.8-10.8)
[2020-04-01 08:50] LABS: ALT (SGPT) 193 U/L (8-55); AST (SGOT) 108 U/L (5-34); Alkaline Phosphatase 143 U/L (40-110); Anion Gap 13 mmol/L (10-20); BUN (Urea Nitrogen) 5 mg/dL (7.0-18.7); Bilirubin, Total 0.2 mg/dL (0.2-1.2); Calc. Creatinine Clearance 169 mL/min (70-130); Calcium 8.6 mg/dL (7.8-10.44); Carbon Dioxide 22 mmol/L (22-29); Chloride 107 mmol/L (98-107); Estimated GFR-MDRD Greater than 90; Globulin 3.5 g/dL (2.4-3.5); Glucose 169 mg/dL (70-105); Potassium 3.6 mmol/L (3.5-5.1); Protein, Total 6.5 g/dL (6.0-8.3); Sodium 138 mmol/L (136-145)
[2020-04-01] MEDS: Cholecalciferol 1,000 UNITS (25 MCG) TAB PO SCH (09:04)
[2020-04-01] MEDS: Promethazine HCl 12.5 MG in Sodium Chloride 0.9% 50 ML IVPB PRN (09:05)
[2020-04-01] MEDS: Prenatal Vitamin 1 TAB PO SCH (09:05)
[2020-04-01] MEDS: Ferrous Sulfate 325 MG TAB PO SCH (09:05)
--- NOTE | 2020-04-01 09:06 | PDOC.LDPN ---
Labor & Delivery Progress Note - Subjective Subjective: comfortable - Objective Vital signs reviewed and normal: yes General: NAD Uterine fundus: non tender FHT: category 1 [place] contractions every: none
[2020-04-01] MEDS: Betamet Acet/Betamet Na Ph 30 MG/5 ML VIAL IM SCH (10:03)
[2020-04-01 10:36] VITALS: BP 125/70; TEMP 97.7
== END 2020-04-01 13:17 | disposition home or self-care (01) | DRG 831 ==
LOC: L&D/OP 11:55 → L&D 15:51 → INTOOBSV 15:51 → OBSVTOIN 15:51
PROVIDERS: ADMIT Student in an Organized Health Care Education/Training Program; ATTEND Student in an Organized Health Care Education/Training Program
PROC: 02HV33Z Insertion of Infusion Device into Superior Vena Cava, Percutaneous Approach (ICD-10-PCS; principal; 2020-03-30)
DX: O21.9 Vomiting of pregnancy, unspecified (principal); O60.03 Preterm labor without delivery, third trimester; O26.893 Other specified pregnancy related conditions, third trimester; R79.89 Other specified abnormal findings of blood chemistry; Q13.81 Rieger anomaly; Z88.8 Allergy status to other drugs, medicaments and biological substances; Z91.040 Latex allergy status; Z3A.30 30 weeks gestation of pregnancy
CPT/HCPCS: 36415; 36416; 76815; 76819; 80053; 82239; 82570; 84156; 85025; 85027; 87040; 99285; J0702; J1200; J2405; J2550

== ENCOUNTER 2020-04-20 11:46 | Inpatient (IN) | payer OTHER ==
[2020-04-20 12:31] VITALS: BMI 37.4
[2020-04-20] MEDS ORDERED: hydrALAZINE 20 MG/ML VIAL SLOW IVP PRN (12:55)
[2020-04-20 13:37] LABS: #Basophils 0.1 thou/uL (0.0-0.2); #Eosinphils 0.2 thou/uL (0.0-0.7); #Lymphocytes 2.3 thou/uL (1.20-3.40); #Monocytes 0.7 thou/uL (0.11-0.59); #Neutrophils 10.2 thou/uL (1.40-6.50); %Basophils 0.7 % (0.0-1.0); %Eosinophils 1.3 % (0.0-10.0); %Lymphocytes 16.8 % (21.0-51.0); %Monocytes 5.2 % (0.0-10.0); Hemoglobin 11.2 g/dL (12.0-16.0); Mean Corpuscular HGB CONC 33.2 g/dL (32.0-36.0); Mean Corpuscular Hemoglobin 28.6 pg (27.0-31.0); Mean Platelet Volume 10.5 fL (7.4-10.4); Platelet Count 160 thou/uL (130-400); RBC Distribution Width 13.2 % (11.5-14.5); Red Blood Cell (RBC) Count 3.93 mill/uL (4.20-5.40); White Blood Cell (WBC) Count 13.4 thou/uL (4.8-10.8)
[2020-04-20 13:55] LABS: ALT (SGPT) 62 U/L (8-55); AST (SGOT) 98 U/L (5-34); Albumin 3.2 g/dL (3.5-5.0); Alkaline Phosphatase 149 U/L (40-110); Anion Gap 16 mmol/L (10-20); BUN (Urea Nitrogen) 8 mg/dL (7.0-18.7); Bilirubin, Total 0.3 mg/dL (0.2-1.2); Calc. Creatinine Clearance 174 mL/min (70-130); Calcium 8.8 mg/dL (7.8-10.44); Carbon Dioxide 19 mmol/L (22-29); Chloride 107 mmol/L (98-107); Estimated GFR-MDRD Greater than 90; Glucose 88 mg/dL (70-105); Potassium 4.2 mmol/L (3.5-5.1); Protein, Total 7.2 g/dL (6.0-8.3); Sodium 138 mmol/L (136-145)
[2020-04-20 15:03] LABS: Creatinine, Urine 241.7 mg/dL (47-110)
[2020-04-20] MEDS ORDERED: Butorphanol Tartrate 1 MG/ML VIAL SLOW IVP PRN (17:21)
[2020-04-20] MEDS ORDERED: Promethazine HCl 25 MG/ML VIAL IM PRN (17:21)
[2020-04-20] MEDS ORDERED: Ondansetron PF 4 MG/2 ML Vial IVP PRN (17:21)
[2020-04-20] MEDS ORDERED: Acetaminophen 500 MG TAB PO PRN (17:21)
[2020-04-20] MEDS ORDERED: Zolpidem Tartrate 5 MG TAB PO PRN (17:21)
[2020-04-20] MEDS: Lactated Ringer's 1,000 ML IV SCH (19:30)
[2020-04-20] MEDS: Promethazine HCl 12.5 MG in Sodium Chloride 0.9% 50 ML IVPB PRN (23:00)
[2020-04-21] MEDS: hydrALAZINE 20 MG/ML VIAL SLOW IVP PRN ×2 (00:14→00:55)
[2020-04-21] MEDS: Lactated Ringer's 1,000 ML IV SCH ×3 (04:14→20:38)
[2020-04-21] MEDS: Promethazine HCl 12.5 MG in Sodium Chloride 0.9% 50 ML IVPB PRN (04:26)
[2020-04-21 05:53] LABS: ALT (SGPT) 64 U/L (8-55); AST (SGOT) 97 U/L (5-34); Albumin 2.9 g/dL (3.5-5.0); Alkaline Phosphatase 137 U/L (40-110); Anion Gap 14 mmol/L (10-20); BUN (Urea Nitrogen) 8 mg/dL (7.0-18.7); Bilirubin, Total 0.3 mg/dL (0.2-1.2); Calc. Creatinine Clearance 190 mL/min (70-130); Calcium 9.1 mg/dL (7.8-10.44); Carbon Dioxide 19 mmol/L (22-29); Chloride 108 mmol/L (98-107); Estimated GFR-MDRD Greater than 90; Globulin 3.4 g/dL (2.4-3.5); Glucose 121 mg/dL (70-105); Potassium 3.5 mmol/L (3.5-5.1); Protein, Total 6.3 g/dL (6.0-8.3); Sodium 137 mmol/L (136-145)
[2020-04-21] MEDS ORDERED: Calcium Gluc 4.6 MEQ/10 ML (100 MG/ML) SLOW IVP PRN (07:36)
[2020-04-21] MEDS ORDERED: hydrALAZINE 20 MG/ML VIAL SLOW IVP PRN (07:36)
[2020-04-21] MEDS ORDERED: Magnesium Sulfate 20 gm/500 ml 20 GM/500 ML BAG ONE (07:36)
--- NOTE | 2020-04-21 07:39 | PDOC.LDPN ---
Labor & Delivery Progress Note - Subjective Subjective: comfortable - Objective Vital signs reviewed and normal: yes Abnormal vital signs: multiple severe range BP overnight General: NAD Uterine fundus: non tender FHT: category 1 -: IUP at 34w with severe PIH based on severe range BP, PCR of 0.3 and mildly elevated LFTs. s/p BMZ x 2 courses. Start Mag for seizure ppx. Dispo for RCS at this time. status reassuring. NPO now
[2020-04-21] MEDS ORDERED: CEFAZOLIN 2 GM in Premix Bag 1 BAG IVPB SCH (07:45)
[2020-04-21] MEDS ORDERED: Bicitra 30 ML UDCUP PO SCH (07:45)
[2020-04-21] MEDS ORDERED: Magnesium Sulfate 20 GM/WATER 500 ML BAG IVPB SCH (07:45)
[2020-04-21 08:21] LABS: Hemoglobin 10.9 g/dL (12.0-16.0); Mean Corpuscular Hemoglobin 28.6 pg (27.0-31.0); Mean Corpuscular Volume 86.9 fL (78.0-98.0); Mean Platelet Volume 10.1 fL (7.4-10.4); Platelet Count 158 thou/uL (130-400); RBC Distribution Width 12.9 % (11.5-14.5); Red Blood Cell (RBC) Count 3.82 mill/uL (4.20-5.40); White Blood Cell (WBC) Count 12.8 thou/uL (4.8-10.8)
[2020-04-21] MEDS: Magnesium Sulfate 20 gm/500 ml 20 GM/500 ML BAG IVPB SCH (08:45)
[2020-04-21 09:03] LABS: Syphilis Antibody Nonreactive (Nonreactive); Syphilis Antibody Index 0.06 S/CO (<1.00 Non-Reactive)
[2020-04-21 09:12] LABS: HBSAg Index 0.14 S/CO (0-0.99); Hep B Surf Ag Non-Reactive S/CO (NonReactive)
[2020-04-21] MEDS ORDERED: MORPHINE 5 MG/10 ML PF VIAL ONE (12:20)
[2020-04-21] MEDS ORDERED: PHENYLEPHRINE-NS 100 MCG/ML 10 ML SYRINGE ONE (12:21)
[2020-04-21] MEDS ORDERED: Oxytocin 10 UNITS/ML VIAL ONE (12:21)
[2020-04-21] MEDS ORDERED: Ondansetron PF 4 MG/2 ML Vial ONE (12:21)
[2020-04-21] MEDS ORDERED: EPHEDRINE 25 MG/5 ML SYRINGE ONE (12:21)
[2020-04-21 12:22] LABS: SARS-CoV-2 MS2 Positive; SARS-CoV-2 N Gene Negative; SARS-CoV-2 S Gene Negative; SARS-CoV-2 by NAA Not Detected (NotDetected); SARS-CoV-2 orf1ab Negative
[2020-04-21] MEDS ORDERED: Promethazine HCl 25 MG SUPP PR PRN (15:19)
[2020-04-21] MEDS ORDERED: Ondansetron HCl/PF 4 MG/2 ML Vial IVP PRN (15:19)
[2020-04-21] MEDS ORDERED: Promethazine HCl 25 MG/ML VIAL IM PRN (15:19)
[2020-04-21] MEDS ORDERED: Meperidine HCl/PF 25 MG/ML VIAL SLOW IVP PRN (15:19)
[2020-04-21] MEDS ORDERED: L&D-Morphine 4 MG/ML VIAL SLOW IVP PRN (15:19)
[2020-04-21] MEDS ORDERED: HYDROmorphone 2 MG/ML VIAL SLOW IVP PRN (15:19)
[2020-04-21] MEDS ORDERED: Ondansetron PF 4 MG/2 ML Vial IVP PRN (15:19)
[2020-04-21] MEDS ORDERED: Naloxone HCl 0.4 mg/ml Vial IVP PRN ×2 (15:19)
[2020-04-21] MEDS ORDERED: Naloxone HCl 0.4 mg/ml Vial IV PRN (15:19)
[2020-04-21] MEDS ORDERED: Communication Order-Pharmacy FS SCH (15:30)
[2020-04-21] MEDS ORDERED: Ketorolac Tromethamine 30 MG/ML VIAL IVP SCH (15:30)
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
[2020-04-21] MEDS ORDERED: Ketorolac Tromethamine 30 MG/ML VIAL ONE (16:10)
[2020-04-21] MEDS ORDERED: Meperidine HCl/PF 25 MG/ML VIAL ONE (16:10)
[2020-04-21] MEDS ORDERED: NS / Oxytocin 40 units/1000ml 0 ML ONE (16:24)
--- NOTE | 2020-04-21 16:26 | PDOC.OPDEL ---
OB Operative/Delivery Note Delivery Dr/Surgeon: Brennan Assist: Ladarius Pre-Delivery Diagnosis: other (Severe PIH at 34w, sterilization) Procedure/Post Delivery Dx: repeat low transverse CS (and RRS) Weeks gestation: 34 Anesthesia: spinal - Findings A Sex: male - Additional Findings/Plan Placenta delivered: manual removal findings: low transverse hysterotomy without extension, normal uterus, normal tubes, normal ovaries, other (omental adhesions to uterus, right fallopian tube adherent to lateral uterus) Estimated blood loss: 500 Post delivery plan: routine recovery
[2020-04-21] MEDS ORDERED: NS / Oxytocin 40 units/1000ml 1,000 ML ONE (20:33)
[2020-04-21] MEDS: Ketorolac Tromethamine 30 MG/ML VIAL IVP PRN (22:40)
--- NOTE | 2020-04-21 23:48 | OP ---
DATE OF PROCEDURE: 04/21/2020 PREOPERATIVE DIAGNOSES: 1. Intrauterine at 34 weeks and 2 days. 2. Severe preeclampsia. 3. Prior x1. 4. Sterilization. POSTOPERATIVE DIAGNOSES: 1. Intrauterine at 34 weeks and 2 days. 2. Severe preeclampsia. 3. Prior x1. 4. Sterilization. PROCEDURE PERFORMED: Repeat low transverse section via Pfannenstiel skin incision and bilateral salpingectomy. ESTIMATED BLOOD LOSS: 500 mL. COMPLICATIONS: None. DRAINS: Kang catheter. PATHOLOGY: Bilateral fallopian tubes. FINDINGS: Male infant, cephalic presentation, clear amniotic fluid. Apgars and weight are pending. Hysterotomy without extension. Normal uterus, ovaries, and tubes. Omental adhesions to the uterus as well as right fallopian tube adherent to the lateral side of the uterus. DESCRIPTION OF PROCEDURE: The patient was taken to the operating room, where spinal anesthesia was obtained without difficulty. The patient was prepped and draped in a sterile fashion in a dorsal supine position with a leftward tilt. After ensuring adequacy of anesthesia, a Pfannenstiel skin incision was made and carried down to the underlying subcutaneous tissue with a knife. The fascia was nicked in the midline with a knife and carried laterally with the Martínez scissors. The superior aspect of the fascia was tented with 2 Fidel's and dissected off the rectus with the Martínez scissors. The inferior aspect of the fascia was tented with 2 Fidel's and dissected off the rectus down to the pubic symphysis with the Martínez's. The rectus was grasped with 2 Fidel's just lateral to the midline and the rectus sheath was sharply entered into with Martínez scissors. The incision was manually retracted. Some omental adhesions to the anterior abdominal wall were taken down. The Kuldeep O retractor was placed. A bladder flap was created with the Metzenbaum. The lower uterine segment was incised in a transverse fashion and extended with a Walker maneuver. The infant's head was brought to the hysterotomy and delivered atraumatically. 's cord was clamped and infant handed to awaiting Terell team. Cord blood was obtained. The placenta was allowed to spontaneously deliver. However, the cord avulsed and therefore it was manually removed. Uterus was exteriorized, cleared of all clots and debris and placed back into the abdomen. The hysterotomy was repaired with a #1 Monocryl in a running locking fashion with excellent hemostasis. A warm moist lap was placed across the hysterotomy and the uterus was removed. The left fallopian tube was grasped with a Filemon clamp. The mesosalpinx was incised on cautery with the Bovie. Two clamps were placed, one medially across the fallopian tube and one laterally at the distal fimbriated end of the fallopian tube. The fallopian tube was then incised with the Metzenbaums and sent for pathology. The 2 clamps were tied off with 2-0 chromic. Hemostasis was noted. The same procedure was performed on the right side except the right fallopian tube was adherent to the lateral side of the uterus. This required careful dissection with the Bovie around the engorged vessels as well as using my finger to undermine tissue. Once the fallopian tube was freed, it was able to be clamped and cut and ligated in a similar fashion as the contralateral side. The uterus was placed back into the abdomen. The hysterotomy was examined and noted to be hemostatic. Both fallopian tube sites were examined and noted to be hemostatic. All instruments were removed out of the abdomen after irrigation was performed. The rectus muscles were examined and noted to be hemostatic. The fascia was reapproximated with 0 PDS x2 sutures with excellent reapproximation. Subcutaneous tissue was irrigated and cauterized of any bleeders and reapproximated with a 2-0 plain gut in a running fashion x2 layers. The skin was closed with 4-0 Monocryl in a subcuticular fashion. Dermabond was applied as well as a pressure dressing. The patient tolerated the procedure well. Sponge, lap, and needle counts correct x2. The patient was taken to recovery in stable condition. Patient received Ancef 2 g prior to the procedure. Job ID: [id number]
[2020-04-22] MEDS: diphenhydrAMINE 50 MG/ML VIAL IVP PRN ×2 (00:07→09:14)
[2020-04-22] MEDS: Promethazine HCl 12.5 MG in Sodium Chloride 0.9% 50 ML IVPB PRN ×2 (01:07→13:33)
[2020-04-22] MEDS: Magnesium Sulfate 20 gm/500 ml 20 GM/500 ML BAG IVPB SCH ×2 (02:28→12:10)
[2020-04-22] MEDS: Ketorolac Tromethamine 30 MG/ML VIAL IVP PRN ×2 (09:14→14:38)
[2020-04-22] MEDS: Lactated Ringer's 1,000 ML IV SCH (10:30)
--- NOTE | 2020-04-22 13:10 | PDOC.PP ---
Post Progress Note Post Day #: 1 Subjective: No sx PIH, pain controlled, no N/V PO intake tolerated: yes Flatus: yes Ambulation: no Vital Signs (12 hours) Temp Pulse Resp BP Pulse Ox 04/22/20 12:00 98.0 F 86 18 132/67 98 04/22/20 08:00 99 04/22/20 07:37 98.2 F 80 18 99 Weight Admit Weight 179 lb Weight 179 lb - Physical Examination General: NAD Respiratory: non-labored breathing Abdominal: no distention, appropriately TTP Fundus firm & at: umb Skin: CS incision dry & intact Neurological: no gross focal deficits Psychiatric: normal affect Result Diagrams: 04/21/20 08:08 04/21/20 05:18 Additional Labs: Post Labs Blood Type A POSITIVE 04/21/20 05:18 Hep Bs Antigen Non-Reactive S/CO (NonReactive) 04/21/20 08:08 - Assessment/Plan POD1 s/p RCS at 34w due to severe PIH VSSAF Severe PIH- on Mag, DC at 24hr, no signs of toxicity or sx of PIH. Diuresing. BP wnl. Routine postop advances, MOISES quiroga on DC mag Transfer to floor after Mag
[2020-04-22] MEDS ORDERED: diphenhydrAMINE 25 MG CAP PO PRN (15:31)
[2020-04-22] MEDS ORDERED: Acetaminophen 325 MG TAB PO PRN (15:31)
[2020-04-22] MEDS ORDERED: hydrALAZINE 20 MG/ML VIAL SLOW IVP PRN (15:31)
[2020-04-22] MEDS ORDERED: Lanolin Ointment 7 GM TUBE TOP PRN (15:31)
[2020-04-22] MEDS ORDERED: Bisacodyl 10 MG SUPP PR PRN (15:31)
[2020-04-22] MEDS ORDERED: Simethicone Chewable 80 MG TAB PO PRN (15:31)
[2020-04-22] MEDS: Ibuprofen 800 MG TAB PO SCH (22:19)
[2020-04-22] MEDS: Docusate Calcium (SURFAK) 240 MG CAP PO SCH (22:19)
[2020-04-22] MEDS ORDERED: Sodium Chloride 0.9% 10 ML ONE (22:51)
[2020-04-22] MEDS: HYDROcodone/Acetaminophen 5/325 mg Tablet PO PRN (23:12)
[2020-04-23] MEDS: Ferrous Sulfate 325 MG TAB PO SCH ×3 (01:55→20:55)
[2020-04-23] MEDS: Lactated Ringer's 1,000 ML IV SCH (01:56)
[2020-04-23 05:39] LABS: Hemoglobin 8.9 g/dL (12.0-16.0); Mean Corpuscular HGB CONC 30.2 g/dL (32.0-36.0); Mean Corpuscular Hemoglobin 26.2 pg (27.0-31.0); Mean Platelet Volume 9.6 fL (7.4-10.4); Platelet Count 207 thou/uL (130-400); RBC Distribution Width 13.3 % (11.5-14.5); Red Blood Cell (RBC) Count 3.38 mill/uL (4.20-5.40); White Blood Cell (WBC) Count 12.3 thou/uL (4.8-10.8)
[2020-04-23] MEDS: Ibuprofen 800 MG TAB PO SCH ×3 (05:54→18:06)
--- NOTE | 2020-04-23 08:06 | PDOC.PP ---
Post Progress Note Post Day #: 2 PO intake tolerated: yes Flatus: yes Ambulation: yes Vital Signs (12 hours) Temp Pulse Resp BP Pulse Ox 04/23/20 04:30 98.3 F 76 14 135/72 04/22/20 23:25 98.4 F 95 16 139/60 04/22/20 21:12 98.4 F 110 H 12 97/55 L 97 Weight Admit Weight 179 lb Weight 179 lb - Physical Examination General: NAD Respiratory: non-labored breathing Abdominal: no distention, appropriately TTP Fundus firm & at: umb-2 Skin: CS incision dry & intact Neurological: no gross focal deficits Psychiatric: normal affect Result Diagrams: 04/23/20 05:22 04/21/20 05:18 Additional Labs: Post Labs Blood Type A POSITIVE 04/21/20 05:18 Hep Bs Antigen Non-Reactive S/CO (NonReactive) 04/21/20 08:08 - Assessment/Plan POD2 s/p RCS VSSAF Severe PIH- s/p Mag BP nl, no sx PIH\ Met all postop milestones Baby in NICU doing well Postop anemia d/t surgical blood loss, hgb 8.9, asymptomatic, cont iron and PNV Cont postop care.
[2020-04-23] MEDS: Docusate Calcium (SURFAK) 240 MG CAP PO SCH ×2 (08:45→20:55)
[2020-04-23] MEDS: Prenatal Vitamin 1 TAB PO SCH (08:45)
[2020-04-23] MEDS: HYDROcodone/Acetaminophen 5/325 mg Tablet PO PRN ×3 (08:49→22:18)
[2020-04-23] MEDS ORDERED: PARoxetine 20 MG TAB PO SCH (11:00)
[2020-04-23] MEDS ORDERED: Adacel (T-DAP) 0.5 ML SYRINGE IM ONE (15:31)
[2020-04-24] MEDS: Ibuprofen 800 MG TAB PO SCH ×5 (01:08→22:00)
[2020-04-24] MEDS: HYDROcodone/Acetaminophen 5/325 mg Tablet PO PRN ×4 (07:23→22:11)
--- NOTE | 2020-04-24 08:18 | PDOC.PP ---
Post Progress Note Post Day #: 3 PO intake tolerated: yes Flatus: yes Ambulation: yes Vital Signs (12 hours) Temp Pulse Resp BP Pulse Ox 04/24/20 08:14 98.0 F 85 20 131/61 99 04/24/20 05:50 84 142/67 H 04/24/20 05:35 163/79 H 04/23/20 20:55 145/70 H 04/23/20 20:40 98.3 F 89 16 159/70 H 98 Weight Admit Weight 179 lb Weight 179 lb - Physical Examination General: NAD Respiratory: non-labored breathing Abdominal: no distention, appropriately TTP Extremities: negative homans (B) Skin: CS incision dry & intact Neurological: no gross focal deficits Psychiatric: normal affect Result Diagrams: 04/23/20 05:22 04/21/20 05:18 Additional Labs: Post Labs Blood Type A POSITIVE 04/21/20 05:18 Hep Bs Antigen Non-Reactive S/CO (NonReactive) 04/21/20 08:08
[2020-04-24] MEDS: Prenatal Vitamin 1 TAB PO SCH (08:19)
[2020-04-24] MEDS: Ferrous Sulfate 325 MG TAB PO SCH ×2 (08:19→21:59)
[2020-04-24] MEDS: Docusate Calcium (SURFAK) 240 MG CAP PO SCH ×2 (08:20→21:59)
[2020-04-24] MEDS: PARoxetine 20 MG TAB PO SCH (08:20)
[2020-04-24] MEDS: Labetalol 100 MG TAB PO SCH ×2 (08:36→22:00)
[2020-04-25] MEDS: Ibuprofen 800 MG TAB PO SCH ×3 (00:47→17:09)
--- NOTE | 2020-04-25 05:43 | PDOC.PP ---
Post Progress Note Post Day #: POD4 Subjective: Doing well, no c/o. PO intake tolerated: yes Flatus: yes Ambulation: yes Vital Signs (12 hours) Temp Pulse Resp BP BP 04/24/20 22:00 93 137/66 04/24/20 20:00 97.7 F 93 18 137/66 Weight Admit Weight 81.193 kg Weight 81.193 kg - Physical Examination General: NAD Abdominal: no distention Skin: CS incision dry & intact Neurological: no gross focal deficits Result Diagrams: 04/23/20 05:22 04/21/20 05:18 Additional Labs: Post Labs Blood Type A POSITIVE 04/21/20 05:18 Hep Bs Antigen Non-Reactive S/CO (NonReactive) 04/21/20 08:08 - Assessment/Plan BPs well controlled on Labetalol 200 BID. DC home with precautions. RTC with Dr. Amin in 2 weeks for BP check.
[2020-04-25] MEDS: HYDROcodone/Acetaminophen 5/325 mg Tablet PO PRN ×2 (07:46→13:46)
[2020-04-25] MEDS: Prenatal Vitamin 1 TAB PO SCH (07:59)
[2020-04-25] MEDS: Ferrous Sulfate 325 MG TAB PO SCH (07:59)
[2020-04-25] MEDS: Labetalol 100 MG TAB PO SCH (08:00)
[2020-04-25] MEDS: Docusate Calcium (SURFAK) 240 MG CAP PO SCH (08:00)
[2020-04-25] MEDS: PARoxetine 20 MG TAB PO SCH (08:00)
[2020-04-25 17:12] VITALS: BP 153/70; TEMP 98
== END 2020-04-25 17:30 | disposition home or self-care (01) | DRG 784 ==
LOC: L&D/OP 11:46 → L&D 19:37 → OBSVTOIN 19:37 → L&D 04-21 15:10 → 3SW 04-22 17:03
PROVIDERS: ADMIT Student in an Organized Health Care Education/Training Program; ATTEND Student in an Organized Health Care Education/Training Program
PROC: 10D00Z1 Extraction of Products of Conception, Low, Open Approach (ICD-10-PCS; principal; 2020-04-21)
PROC: 0UB70ZZ Excision of Bilateral Fallopian Tubes, Open Approach (ICD-10-PCS; 2020-04-21)
DX: O14.14 Severe pre-eclampsia complicating childbirth (principal); D62 Acute posthemorrhagic anemia; O34.211 Maternal care for low transverse scar from previous cesarean delivery; O90.81 Anemia of the puerperium; Z11.59 Encounter for screening for other viral diseases; Z37.0 Single live birth; Z3A.34 34 weeks gestation of pregnancy; Z79.899 Other long term (current) drug therapy; Z79.82 Long term (current) use of aspirin; Z88.8 Allergy status to other drugs, medicaments and biological substances; Z91.040 Latex allergy status; Z30.2 Encounter for sterilization
CPT/HCPCS: 36415; 51702; 80053; 82570; 84156; 85025; 85027; 86780; 86850; 86900; 86901; 87340; 87635; 88302; 96374; 96375; 99285; G0378; G0379; J0360; J0690; J1200; J1885; J2175; J2274; J2310; J2405; J2550; J2590; J3475; U0003